=== PATIENT | male | born 1965 | race Caucasian/White ===

== ENCOUNTER 2017-05-02 16:12 | Emergency (ER) | payer BC ==
[~2017-05-02] VITALS: Ht 180.3 cm; Wt 166.8 kg
[~2017-05-02 16:12] MED LIST: LISI-788 PO; NAPR1TAB9 PO; PRED1SUS3 OPL; WELLBUTRIN PO
[2017-05-02 16:15] VITALS: TEMP 36.5; Ht 180.3 cm; Wt 166.8 kg
--- NOTE | 2017-05-02 16:29 | EMERGENCY ROOM VISIT NOTE ---
History First contact with patient: 16:17 Chief Complaint: FLANK PAIN Stated Complaint: LOWER LEFT SIDE PAIN History of Present Illness The patient is a 52 year old male who presents to the Emergency Room with complaints of left sided abdominal pain. Associated with diaphoresis. Initial episode yesterday around midday, lasted for 10 minutes, completely resolved. 14: 30 today had another episode, sudden starts left side and goes around to the front. He has had previous kidney stones and feels they are similar to this but previously the pain was much worse. No Urine Sx. No change BM (last BM earlier in the morning, very loose). No nausea or vomiting. No chest pain or shortness of breath. Review of Systems See HPI for pertinent positives & negatives. A total of 10 systems reviewed and were otherwise negative. Past Medical/Surgical History Medical Problems: (1) Asthma, Unspecified (2) Depress Disorder-Unspec (3) Hypertension Nos (4) Obesity, Nos Social History Problems: (1) Depress Disorder-Unspec Social History Smoking Status: Never Smoker Current/Historical Medications Scheduled Allopurinol (Zyloprim), 300 MG PO DAILY Amlodipine (Norvasc), 5 MG PO DAILY Aspirin (Aspirin Ec), 81 MG PO DAILY Atorvastatin (Lipitor), 10 MG PO DAILY Bupropion (Wellbutrin Sr), 150 MG PO DAILY Lisinopril (Zestril), 40 MG PO DAILY Tamsulosin Hcl (Flomax), 1 CAP PO DAILY Scheduled PRN Furosemide (Lasix), 20 MG PO DAILY PRN for EDEMA Ondansetron Hcl (Zofran), 4 MG PO Q4H PRN for Nausea Oxycodone Ir (Roxicodone Ir), 1-2 TAB PO Q4H PRN for Severe Pain Allergies Coded Allergies: No Known Allergies (Unverified , 06/07/16) Physical Exam Vital Signs Date Time Temp Pulse Resp B/P (MAP) Pulse Ox O2 Delivery O2 Flow Rate FiO2 05/02/17 18:17 73 18 170/94 97 Room Air 05/02/17 16:15 36.5 78 16 219/132 95 Room Air Physical Exam VITAL SIGNS: were reviewed as above GENERAL: mild acute distress from pain SKIN: Warm dry and pink, no rashes HEAD: Normocephalic and atraumatic EYES: extraocular muscles intact, pupils equal and reactive to light OROPHARYNX: non erythematous, clear and moist LUNGS: Regular rate, no accessory muscle use, no respiratory distress, clear to auscultation, no accessory muscle use HEART: Regular rate and rhythm, heart sounds 1+2, no murmurs ABDOMEN: Soft, left lower quadrant tenderness without guarding or rebound tenderness, bowel sounds normal BACK: no CVA tenderness EXTREMITIES: Warm and well perfused, no calf tenderness/swelling, no pedal edema. NEUROLOGICALLY: Awake alert and oriented without gross focal motor or sensory deficit. There is no facial droop. Speech is clear. Vision is grossly normal. Medical Decision & Procedures ER Provider Diagnostic Interpretation: CT SCAN OF THE ABDOMEN AND PELVIS WITHOUT CONTRAST CLINICAL HISTORY: Left flank and left lower quadrant abdominal pain COMPARISON STUDY: No previous studies for comparison. TECHNIQUE: CT scan of the abdomen and pelvis was performed from the lung bases to the proximal femurs. Images are reviewed in the axial, sagittal, and coronal planes. IV contrast was not administered for this examination. CT DOSE: 2410.83 mGy.cm FINDINGS: Lower chest: The heart is mildly enlarged. There are minimal coronary artery calcifications. There is minor basilar atelectasis. There are no pleural effusions. Liver: There is hepatic steatosis. No focal hepatic masses are visualized. Gallbladder: Unremarkable. Spleen: Normal in size and attenuation. Pancreas: Unremarkable. Adrenal glands: Unremarkable. Kidneys: There is a 3 mm mid pole right renal calculus. There is a 3 mm lower pole left renal calculus. There is mild left-sided hydronephrosis. There is mild left-sided hydroureter. There is a 4 mm calculus at the level of the left ureterovesical junction. Bowel: There are no transition zones indicate bowel obstruction. There is colonic diverticulosis. There are no acute peridiverticular inflammatory changes. The appendix appears normal. Peritoneum: There is no intraperitoneal free air or abdominal ascites. Vasculature: The abdominal aorta is normal in course and caliber. Adenopathy: None. Pelvic viscera: The bladder, and pelvic viscera are unremarkable. Skeletal structures: No destructive osseous lesions are seen. IMPRESSION: 1. Bilateral nephrolithiasis 2. 4 mm calculus at the level the left ureterovesical junction with mild secondary obstructive changes 3. No evidence of bowel obstruction. No evidence of free air. Electronically signed by: Maik Chang M.D. 05/02/2017 5:41 PM Dictated Date/Time: 05/02/2017 5:36 PM Laboratory Results 05/02/17 17:05 Red Blood Count 5.21, Mean Corpuscular Volume 91.2, Mean Corpuscular Hemoglobin 31.3, Mean Corpuscular Hemoglobin Concent 34.3, Mean Platelet Volume 11.5, Neutrophils (%) (Auto) 66.1, Lymphocytes (%) (Auto) 20.5, Monocytes (%) (Auto) 7.6, Eosinophils (%) (Auto) 4.8, Basophils (%) (Auto) 0.4, Neutrophils # (Auto) 6.75, Lymphocytes # (Auto) 2.09, Monocytes # (Auto) 0.78, Eosinophils # (Auto) 0.49, Basophils # (Auto) 0.04 05/02/17 17:05 Test 05/02/17 17:05 05/02/17 17:16 05/02/17 17:24 White Blood Count 10.21 K/uL (4.8-10.8) Red Blood Count 5.21 M/uL (4.7-6.1) Hemoglobin 16.3 g/dL (14.0-18.0) Hematocrit 47.5 % (42-52) Mean Corpuscular Volume 91.2 fL (80-100) Mean Corpuscular Hemoglobin 31.3 pg (25-34) Mean Corpuscular Hemoglobin Concent 34.3 g/dl (32-36) Platelet Count 202 K/uL (130-400) Mean Platelet Volume 11.5 fL (7.4-10.4) Neutrophils (%) (Auto) 66.1 % Lymphocytes (%) (Auto) 20.5 % Monocytes (%) (Auto) 7.6 % Eosinophils (%) (Auto) 4.8 % Basophils (%) (Auto) 0.4 % Neutrophils # (Auto) 6.75 K/uL (1.4-6.5) Lymphocytes # (Auto) 2.09 K/uL (1.2-3.4) Monocytes # (Auto) 0.78 K/uL (0.11-0.59) Eosinophils # (Auto) 0.49 K/uL (0-0.5) Basophils # (Auto) 0.04 K/uL (0-0.2) RDW Standard Deviation 46.9 fL (36.4-46.3) RDW Coefficient of Variation 13.9 % (11.5-14.5) Immature Granulocyte % (Auto) 0.6 % Immature Granulocyte # (Auto) 0.06 K/uL (0.00-0.02) Est Creatinine Clear Calc Drug Dose 111.4 ml/min Estimated GFR () 79.0 Estimated GFR (Non- 68.1 BUN/Creatinine Ratio 13.4 (10-20) Calcium Level 9.0 mg/dl (8.5-10.1) Total Bilirubin 0.5 mg/dl (0.2-1) Aspartate Amino Transf (AST/SGOT) 49 U/L (15-37) Alanine Aminotransferase (ALT/SGPT) 71 U/L (12-78) Alkaline Phosphatase 63 U/L (45-117) Total Protein 8.4 gm/dl (6.4-8.2) Albumin 4.1 gm/dl (3.4-5.0) Globulin 4.3 gm/dl (2.5-4.0) Albumin/Globulin Ratio 1.0 (0.9-2) Lipase 136 U/L (73-393) Bedside Hemoglobin 17.0 g/dl (14.0-18.0) Bedside Hematocrit 50 % (42-52) Bedside Sodium 142 mEq/L (135-144) Bedside Potassium 4.0 mEq/L (3.3-5.0) Bedside Chloride 101 mEq/L (101-112) Bedside Total CO2 28 mEq/l (24-31) Anion Gap 18.0 mmol/L (16-25) Bedside Blood Urea Nitrogen 17 mg/dl (7-18) Bedside Creatinine 1.2 mg/dl (0.6-1.3) Bedside Glucose (other) 93 mg/dl (70-99) Bedside Ionized Calcium (Gabi) 1.13 mmol/l (1.12-1.32) Urine Color DK YELLOW Urine Appearance CLEAR (CLEAR) Urine pH 5.5 (4.5-7.5) Urine Specific [place] 1.024 (1.000-1.030) Urine Protein TRACE (NEG) Urine Glucose (UA) NEG (NEG) Urine Ketones TRACE (NEG) Urine Occult Blood 2+ (NEG) Urine Nitrite NEG (NEG) Urine Bilirubin NEG (NEG) Urine Urobilinogen NEG (NEG) Urine Leukocyte Esterase TRACE (NEG) Urine WBC (Auto) 1-5 /hpf (0-5) Urine RBC (Auto) 10-30 /hpf (0-4) Urine Hyaline Casts (Auto) 5-10 /lpf (0-5) Urine Epithelial Cells (Auto) >30 /lpf (0-5) Urine Bacteria (Auto) NEG (NEG) Medications Administered Medications (Trade) Dose Ordered Sig/Christopher Route Start Time Stop Time Status Last Admin Dose Admin Sodium Chloride 1,000 ml @ 999 mls/hr Q1H1M STAT IV 05/02/17 16:32 05/02/17 17:32 DC 05/02/17 17:26 999 MLS/HR Sodium Chloride 1,000 ml @ 999 mls/hr Q1H1M STAT IV 05/02/17 17:56 05/02/17 18:56 DC 05/02/17 18:12 999 MLS/HR Tamsulosin HCl (Flomax Cap) 0.4 mg NOW STAT PO 05/02/17 18:01 05/02/17 18:03 DC 05/02/17 18:13 0.4 MG Oxycodone HCl (Roxicodone Immediate Rel 5MG Home Pack) 1 homepack UD ONCE PO 05/02/17 18:15 05/02/17 18:16 DC 05/02/17 18:24 1 HOMEPACK Ondansetron HCl (ZOFRAN ODT 4MG Home Pack) 1 homepack UD ONCE PO 05/02/17 18:15 05/02/17 18:16 DC 05/02/17 18:24 1 HOMEPACK ECG Indication: abdominal pain Rate (beats per minute): 79 Rhythm: normal sinus Findings: no acute ischemic change Comparison ECG Date: no prior available ED Course 16:30 Complete history and physical performed 16:[address] Campos who separately performed history and physical , recommended switching CT to without contrast as given his BMI 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 Discussed all results with the patient, treatment and management. Discussed reasons for returning to the ER including fevers, chills, vomiting or increased pain. Medical Decision Prior records/ancillary studies reviewed. Triage Nursing notes reviewed. Additional history obtained from the patient The patient's history was concerning for abdominal pain. Differential diagnosis: Etiologies such as appendicitis, diverticulitis, PUD, biliary pathology, UTI, pancreatitis, obstruction, mesenteric ischemia, aortic pathology, infections, inflammatory bowel disease, renal colic, as well as others were entertained. Physical examination findings: As above. LLQ tenderness ER treatment provided: NSS bolus 1L x2 Tamsulosin 0.4mg PO The patient was frequently asked if he would like anything for pain or nausea but he declined throughout his ER visit. Diagnostics interpreted by me: ECG: NSR no ischemic changes The labs were relatively unremarkable Imaging studies: CT A/P without contrast as above showed a distal left ureter 4mm kidney stone He was diagnosed with renal colic. By the evaluation outlined above emergent etiologies such as appendicitis, diverticulitis, PUD, biliary pathology, UTI, pancreatitis, obstruction, mesenteric ischemia, aortic pathology, infections, inflammatory bowel disease, as well as others were deemed relatively unlikely. The patient informed about the findings as listed above including the additional stone in each of his kidney's remaining. All questions were answered and he pleased with the treatment. Return instructions were outlined and the patient was discharged in stable condition. Blood pressure screening. His blood pressure decreased during his ER visit and was most likely acute situation probably on background of hypertension. He was recommended to follow up with his primary care physician regarding this. Outpatient prescription management: Oxycodone 5mg homepak and 12 tabs (1-2 tabs, Q4H PRN for severe pain) Ondansetron 4mg homepak and 10 tabs (1 tab, Q4H PRN for nausea) Tamsulosin 0.4mg PO daily #7 Referral: The patient was referred back to their primary care physician for follow-up in 2 to 3 days for a recheck of the current condition. [place] Drug Monitoring Program Search Results: patient reviewed within database, no issues identified Impression Primary Impression: Left nephrolithiasis Departure Information Dispostion Home / Self-Care Condition GOOD Prescriptions Tamsulosin Hcl (FLOMAX) 0.4 Mg Cap 1 CAP PO DAILY for 7 Days, #7 CAP 5 Refills Prov: Jose Malone MD 05/02/17 Ondansetron Hcl (ZOFRAN) 4 Mg Tab 4 MG PO Q4H Y for Nausea for 7 Days, #10 TAB Prov: Jose Malone MD 05/02/17 Oxycodone Ir (Roxicodone Ir) 5 Mg Tab 1-2 TAB PO Q4H Y for Severe Pain, #12 TAB Prov: Jose Malone MD 05/02/17 Referrals Griselda Good M.D. (MEDICAL) (PCP) Patient Instructions [facility] Additional Instructions KIDNEY STONE INSTRUCTIONS: DO NOT drive, drink alcohol, operate machinery, or perform dangerous activities today. You were given medications in the ER that can affect your ability to safely function or operate a vehicle. Oxycodone (OxyIR) 5mg: Take 1-2 pills every four hours as needed for breakthrough pain. Avoid alcohol, operating machinery or dangerous equipment, working on ladders or roofs, DRIVING, making important decisions, or situations where being under the influence may be dangerous. It is recommended to use an [id number] stool softener such as Colace, 100mg twice daily while taking this medication to avoid constipation. Zofran(odansetron) tablets 4mg: Take one and allow it to dissolve in your mouth every four hours as needed for nausea or vomiting. Ibuprofen(Motrin, Advil) may be used for fever or pain. Use 600mg every six hours as needed. Take with food. Avoid using more than 2400mg in a 24 hour period. Do not use 2400mg per day for more than three consecutive days without physician direction. Prolonged inappropriate use can lead to stomach upset or ulcers. This is available over the counter and typically comes in 200mg tablets. (AND/OR) Acetaminophen(Tylenol) may be used for fever or pain. Use 1000mg every eight hours as needed. Avoid using more than 3000mg in a 24 hour period. This is available over the counter. Read all the package inserts or medication information paperwork provided. If you have any questions or concerns call your primary provider, pharmacist or the ER for assistance. Strain your urine and collect all the stones or debris for the follow up appointment. Rest and avoid strenuous activity until your stone passes and symptoms resolve.Drink plenty of fluids. Continue current medications. Return to the ER for worsening abdominal or back pain, vomiting, fevers, passing out, or as needed. Follow up with your primary care physician within the next 2-3 days for a recheck of your condition. Resident Tracking Resident Involvement: Resident Care Provided Care Provided: Adult ED
[2017-05-02] MEDS ORDERED: SODIUM CHLORIDE 0.9% 1000ML 1,000 ML IV STA ×2 (16:32→17:56)
[2017-05-02] MEDS ORDERED: OPTIRAY 320 IV PRN (17:00)
[2017-05-02] MEDS ORDERED: ATOR10TA82 PO (17:31)
[2017-05-02] MEDS ORDERED: ASPI81TA28 PO (17:31)
[2017-05-02] MEDS ORDERED: LISI40TA PO (17:31)
[2017-05-02] MEDS ORDERED: BUPR-79 PO (17:31)
[2017-05-02] MEDS ORDERED: AMLO-110 PO (17:31)
[2017-05-02] MEDS ORDERED: ALLO300T2 PO (17:31)
[2017-05-02] MEDS ORDERED: FURO-85 PO (17:31)
[2017-05-02 17:33] LABS: URINE APPEARANCE CLEAR (CLEAR); URINE BILIRUBIN NEG (NEG); URINE COLOR DK YELLOW; URINE EPITHELIAL CELL AUTO >30 /lpf (0-5); URINE NITRITE NEG (NEG); URINE PH 5.5 (4.5-7.5); URINE SPECIFIC GRAVITY 1.024 (1.000-1.030); UROBILINOGEN NEG (NEG); ZZUR CULT IF INDIC CLEAN CATCH NO
[2017-05-02 17:41] LABS: MANUAL MICROSCOPIC REQUIRED? NO; REVIEW REQ? NO
--- NOTE | 2017-05-02 17:42 | DIAGNOSTIC IMAGING REPORT ---
CT SCAN OF THE ABDOMEN AND PELVIS WITHOUT CONTRAST CLINICAL HISTORY: Left flank and left lower quadrant abdominal pain COMPARISON STUDY: No previous studies for comparison. TECHNIQUE: CT scan of the abdomen and pelvis was performed from the lung bases to the proximal femurs. Images are reviewed in the axial, sagittal, and coronal planes. IV contrast was not administered for this examination. CT DOSE: 2410.83 mGy.cm FINDINGS: Lower chest: The heart is mildly enlarged. There are minimal coronary artery calcifications. There is minor basilar atelectasis. There are no pleural effusions. Liver: There is hepatic steatosis. No focal hepatic masses are visualized. Gallbladder: Unremarkable. Spleen: Normal in size and attenuation. Pancreas: Unremarkable. Adrenal glands: Unremarkable. Kidneys: There is a 3 mm mid pole right renal calculus. There is a 3 mm lower pole left renal calculus. There is mild left-sided hydronephrosis. There is mild left-sided hydroureter. There is a 4 mm calculus at the level of the left ureterovesical junction. Bowel: There are no transition zones indicate bowel obstruction. There is colonic diverticulosis. There are no acute peridiverticular inflammatory changes. The appendix appears normal. Peritoneum: There is no intraperitoneal free air or abdominal ascites. Vasculature: The abdominal aorta is normal in course and caliber. Adenopathy: None. Pelvic viscera: The bladder, and pelvic viscera are unremarkable. Skeletal structures: No destructive osseous lesions are seen. IMPRESSION: 1. Bilateral nephrolithiasis 2. 4 mm calculus at the level the left ureterovesical junction with mild secondary obstructive changes 3. No evidence of bowel obstruction. No evidence of free air. Electronically signed by: Maik Chang M.D. 05/02/2017 5:41 PM Dictated Date/Time: 05/02/2017 5:36 PM
--- NOTE | 2017-05-02 17:44 | EMERGENCY ROOM VISIT NOTE ---
ED Visit Note First contact with patient: 16:17 Resident Physician Supervision Note: I was present with Dr. Malone during the history and exam. I discussed the case with the resident and agree with the findings and plan as documented in the note. Documented By: Riccardo Campos
[2017-05-02 17:45] LABS: BUN/CREATININE RATIO 13.4 (10-20); CREATININE 1.2 mg/dl (0.60-1.40)
[2017-05-02 17:48] LABS: BASO % 0.4 %; BASO ABS # 0.04 K/uL (0-0.2); COMPLETE YES; EOS % 4.8 %; HEMATOCRIT 47.5 % (42-52); IG% 0.6 %; LYMPH % 20.5 %; LYMPH ABS # 2.09 K/uL (1.2-3.4); MEAN CELL VOLUME 91.2 fL (80-100); MEAN CORPUSCULAR HEMOGLOBIN 31.3 pg (25-34); MEAN CORPUSCULAR HGB CONC 34.3 g/dl (32-36); MEAN PLATELET VOLUME 11.5 fL (7.4-10.4); MONO % 7.6 %; NEUT % 66.1 %; PLATELET COUNT 202 K/uL (130-400); RED BLOOD COUNT 5.21 M/uL (4.7-6.1); WHITE BLOOD COUNT 10.21 K/uL (4.8-10.8)
[2017-05-02] MEDS ORDERED: TAMSULOSIN HCL 0.4 MG CAP PO STA (18:01)
[2017-05-02] MEDS ORDERED: TAMS0.4C38 PO (18:06)
[2017-05-02] MEDS ORDERED: ONDA4TAB46 PO (18:06)
[2017-05-02] MEDS ORDERED: OXYC1TAB3 PO (18:06)
[2017-05-02] MEDS ORDERED: ONDANSETRON HOME PACK 4MG OD TAB PO ONE (18:15)
[2017-05-02] MEDS ORDERED: OXYCODONE IR HOME PACK PO ONE (18:15)
[2017-05-02 18:17] VITALS: BP 170/94; PULSE 73; O2SAT 97
[2017-05-02 19:35] LABS: ISTAT CREATININE 1.2 mg/dl (0.6-1.3); ISTAT IONIZED CALCIUM 1.13 mmol/l (1.12-1.32)
[2017-05-10] MEDS ORDERED: EPP3/2 IM (13:05)
[2017-05-10] MEDS ORDERED: LOSA50TA36 PO (13:05)
[2017-05-10] MEDS ORDERED: PRD10 PO (13:05)
== END 2017-05-02 18:39 | disposition home or self-care (01) ==
LOC: C.EDB 16:14
DX: N20.0 Calculus of kidney (principal); J45.909 Unspecified asthma, uncomplicated; F32.9 Major depressive disorder, single episode, unspecified; I10 Essential (primary) hypertension; E66.9 Obesity, unspecified; Z68.43 Body mass index [BMI] 50.0-59.9, adult; Z79.82 Long term (current) use of aspirin; Z79.899 Other long term (current) drug therapy

== ENCOUNTER 2017-05-07 20:27 | Inpatient (IN) | payer BC ==
[~2017-05-07] VITALS: Ht 180.3 cm; Wt 167.2 kg
[~2017-05-07 20:27] MED LIST changes: +ALLO300T2 PO; +AMLO-110 PO; +ASPI81TA28 PO; +ATOR10TA88 PO; +BUPR-79 PO; +FURO-85 PO; -LISI-788 PO; +LISI40TA PO; -NAPR1TAB9 PO; +ONDA4TAB46 PO; +OXYC1TAB3 PO; -PRED1SUS3 OPL; +TAMS0.4C38 PO; -WELLBUTRIN PO
[2017-05-07] MEDS ORDERED: SODIUM CHLORIDE 0.9% 1000ML 1,000 ML IV STA (20:32)
[2017-05-07] MEDS ORDERED: EPINEPHRINE ADULT AUTO-INJECT 0.3 MG SYR ONE (20:32)
[2017-05-07] MEDS ORDERED: EpINEphrine INJ 1MG/ML AMP 1 MG/ML AMP SQ STA (20:32)
[2017-05-07] MEDS ORDERED: RANITIDINE HCL 50 MG/100 ML D5W IV STA (20:32)
[2017-05-07] MEDS ORDERED: DiphenhydrAMINE HCL 50 MG/ML VIAL IV STA (20:32)
[2017-05-07] MEDS ORDERED: RACEPINEPHRINE 2.25% NEBU SOLN 0.5 ML VIAL INH STA (20:36)
[2017-05-07] MEDS ORDERED: DEXAMETHASONE SOD INJ 10 MG/ML VIAL IV ONE (20:45)
[2017-05-07] MEDS ORDERED: EpINEphrine HCL INJ 4 MG in DEXTROSE 5% 250ML 250 ML IV STA (20:47)
[2017-05-07 20:53] LABS: BASO % 0.2 %; BASO ABS # 0.02 K/uL (0-0.2); COMPLETE YES; EOS % 5.2 %; HEMATOCRIT 52.3 % (42-52); IG% 0.5 %; LYMPH % 27.3 %; LYMPH ABS # 3.02 K/uL (1.2-3.4); MEAN CELL VOLUME 90.5 fL (80-100); MEAN CORPUSCULAR HEMOGLOBIN 30.6 pg (25-34); MEAN CORPUSCULAR HGB CONC 33.8 g/dl (32-36); MEAN PLATELET VOLUME 11.6 fL (7.4-10.4); MONO % 7.5 %; NEUT % 59.3 %; PLATELET COUNT 213 K/uL (130-400); RED BLOOD COUNT 5.78 M/uL (4.7-6.1); WHITE BLOOD COUNT 11.06 K/uL (4.8-10.8)
[2017-05-07] MEDS ORDERED: EPINEPHRINE HCL 4 MG in DEXTROSE 5% 250ML IV PRN (21:00)
--- NOTE | 2017-05-07 21:02 | EMERGENCY ROOM VISIT NOTE ---
History Report prepared by Letyibadriane: Db Burnette Under the Supervision of: Dr. Clayton Clinton M.D. First contact with patient: 20:32 Chief Complaint: ALLERGIC REACTION Stated Complaint: ALLERGIC REACTION History of Present Illness The patient is a 52 year old male who presents to the Emergency Room with an acute allergic reaction that started just prior to arrival. The patient came to the ED with significant lip and tongue swelling and was unable to talk. He notes some difficult breathing through his nose. The patient also broke out in hives. Per , the patient had 50 mg of Benadryl about 15-20 minutes prior to arrival. The patient has never had an allergic reaction like this before and he is not sure what he is allergic to. The patient does not take FEDERICO inhibitors. 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 He was outside working with treated lumbar just prior to the reaction. The patient was in the ED one week ago with kidney stones. Source of History: patient, spouse/significant other Onset: just prior to arrival Position: other (global) Quality: other (allergic reaction) Timing: other (acute) Associated Symptoms: + rash Note: + facial swelling. some trouble breathing. Review of Systems See HPI for pertinent positives & negatives. A total of 10 systems reviewed and were otherwise negative. Past Medical & Surgical Medical Problems: (1) Angioedema of lips (2) Asthma, Unspecified (3) Depress Disorder-Unspec (4) Hypertension Nos (5) Lip swelling (6) Obesity, Nos (7) Tongue swelling Social History Problems: (1) Depress Disorder-Unspec Family History No pertinent family history Social History Smoking Status: Never Smoker Current/Historical Medications Scheduled Allopurinol (Zyloprim), 300 MG PO DAILY Amlodipine (Norvasc), 5 MG PO DAILY Aspirin (Aspirin Ec), 81 MG PO DAILY Atorvastatin (Lipitor), 10 MG PO DAILY Bupropion (Wellbutrin Sr), 150 MG PO BID Lisinopril (Zestril), 40 MG PO DAILY Scheduled PRN Furosemide (Lasix), 20 MG PO DAILY PRN for EDEMA Allergies Coded Allergies: No Known Allergies (Unverified , 06/07/16) Physical Exam Vital Signs Date Time Temp Pulse Resp B/P (MAP) Pulse Ox O2 Delivery O2 Flow Rate FiO2 05/07/17 22:00 60 05/07/17 22:00 36.3 74 14 113/85 99 Mechanical Ventilator 60 05/07/17 21:06 99 20 98 Non-Rebreather 15.0 05/07/17 20:55 100 18 170/110 98 Mask 12.0 05/07/17 20:37 37.3 110 22 208/110 91 Room Air 05/07/17 20:37 91 Room Air 05/07/17 20:37 109 05/07/17 20:34 91 Room Air Physical Exam GENERAL: Patient is a healthy-appearing well-nourished male. HEAD: Normocephalic atraumatic EYES: Ocular movements intact pupils equal and react to light OROPHARYNX Tongue and lips are grossly swollen. Tongue is roughly the size of the oropharynx. NECK: Positive stridor. CHEST: Good equal expansion LUNGS: Clear and equal to auscultation CARDIAC: Normal S1 and S2 ABDOMEN: Soft nontender no guarding BACK: No CVA tenderness EXTREMITIES: No pain upon palpation normal muscle strength in all groups no clubbing cyanosis or edema. Hive-like rash present on the right forearm. NEURO: Patient is following commands and answering questions appropriately. Alert and oriented x3 Cranial Nerves 2-12 grossly intact Medical Decision & Procedures Laboratory Results Test 05/07/17 20:43 05/07/17 20:53 Immature Granulocyte % (Auto) 0.5 % White Blood Count 11.06 K/uL (4.8-10.8) Red Blood Count 5.78 M/uL (4.7-6.1) Hemoglobin 17.7 g/dL (14.0-18.0) Hematocrit 52.3 % (42-52) Mean Corpuscular Volume 90.5 fL (80-100) Mean Corpuscular Hemoglobin 30.6 pg (25-34) Mean Corpuscular Hemoglobin Concent 33.8 g/dl (32-36) Platelet Count 213 K/uL (130-400) Mean Platelet Volume 11.6 fL (7.4-10.4) Neutrophils (%) (Auto) 59.3 % Lymphocytes (%) (Auto) 27.3 % Monocytes (%) (Auto) 7.5 % Eosinophils (%) (Auto) 5.2 % Basophils (%) (Auto) 0.2 % Neutrophils # (Auto) 6.57 K/uL (1.4-6.5) Lymphocytes # (Auto) 3.02 K/uL (1.2-3.4) Monocytes # (Auto) 0.83 K/uL (0.11-0.59) Eosinophils # (Auto) 0.57 K/uL (0-0.5) Basophils # (Auto) 0.02 K/uL (0-0.2) Immature Granulocyte # (Auto) 0.05 K/uL (0.00-0.02) Prothrombin Time 10.3 SECONDS (9.0-12.0) Prothromb Time International Ratio 1.0 (0.9-1.1) Total Bilirubin 0.3 mg/dl (0.2-1) Direct Bilirubin 0.1 mg/dl (0-0.2) Aspartate Amino Transf (AST/SGOT) 47 U/L (15-37) Alanine Aminotransferase (ALT/SGPT) 66 U/L (12-78) Alkaline Phosphatase 63 U/L (45-117) Total Protein 8.0 gm/dl (6.4-8.2) Albumin 4.0 gm/dl (3.4-5.0) Lipase 161 U/L (73-393) Date/Time Source Procedure Growth Status 05/07/17 00:00 Nasal MRSA DNA Surveillance Screen - Final Specimen Positive for MRSA by DNA Probe Complete Labs reviewed by ED physician. Medications Administered Medications (Trade) Dose Ordered Sig/Christopher Route Start Time Stop Time Status Last Admin Dose Admin Epinephrine (Epipen) 0.3 mg STK-MED ONCE .ROUTE 05/07/17 20:32 05/07/17 20:33 DC 05/07/17 20:32 0.3 MG Diphenhydramine HCl (Benadryl Inj) 25 mg NOW STAT IV 05/07/17 20:32 05/07/17 20:37 DC 05/07/17 20:44 25 MG Sodium Chloride 1,000 ml @ 999 mls/hr Q1H1M STAT IV 05/07/17 20:32 05/07/17 21:32 DC 05/07/17 20:32 999 MLS/HR Dexamethasone Sodium Phosphate (Decadron Inj) 10 mg NOW ONCE IV 05/07/17 20:45 05/07/17 20:46 DC 05/07/17 20:44 10 MG Ranitidine HCl (zANTac IV) 50 mg NOW STAT IV 05/07/17 20:32 05/07/17 20:37 DC 05/07/17 20:44 50 MG Racepinephrine (Raccemic Epinephrine 2.25% 0.5ML Neb) 0.5 ml NOW STAT INH 05/07/17 20:36 05/07/17 20:37 DC 05/07/17 21:06 0.5 ML Hydromorphone HCl (Dilaudid Inj) 2 mg STK-MED ONCE .ROUTE 05/07/17 22:02 05/07/17 22:03 DC 05/07/17 22:02 2 MG ED Course 2030: The patient was moved from room C2b to room A1. 2031: Past medical records reviewed. The patient was evaluated in room A1. A complete history and physical examination was performed. 2031: Zantac 50 mg IV, NSS 1000 ml @ 999 mls/hr, Benadryl 25 mg IV, Epinephrine 0.3 mg SQ. 2035: Racepinephrine 0.5 ml INH. 2044: Decadron 10 mg IV. 2044: The patient signed a blood consent form. Explained the purpose of FFP. The patient is starting to feel somewhat better. 2047: Dr. Pa, Anesthesiologist, at bedside. The OR team will be prepared. 2049: Explained the need to be taken to the OR to the patient and his . They verbalized understanding. 2053: Dr. Guillen, ENT, at bedside. The patient will be taken to the OR. 2099: Epinephrine HCl 4 mg / dextrose 254 ml @ 0 mls/hr IV protocol. 2119: Discussed the case with Dr. Sexton, Time Study Engineer and Dr. Foreman, Hospitalist. They are aware of the case. Medical Decision Differential diagnosis: Etiologies such as allergic reaction, anaphylaxis, urticaria, Matos-Semaj syndrome, toxic epidermal necrolysis, erythema multiforme, cellulitis, as well as others were entertained. Blood Pressure Screening: Patient was found to have an elevated blood pressure and was referred to their primary care doctor for recheck and further treatment Medication Reconciliation: I attest that I have personally reviewed the patient' s current medication list This is a 52-year-old male who presents emergency department complaining of diffuse edema to his lips and tongue. Upon arrival to the emergency department the patient is unable to speak. Due to the patient's presentation he was immediately moved into a trauma bay and immediately given an EpiPen. An IV was established, the patient was then given 10 mg of Decadron, Zantac, 50 mg of Benadryl, normal saline bolus. The patient slowly began to improve because of his entire situation I immediately called anesthesia as well as ear nose and throat. A criteria was placed at the bedside. The patient was then given epi breathing treatments and an epi-drip was ordered. The patient signed a blood consent as I am unsure if this is angioedema or allergic reaction. I typed and crossed him for 2 units of fresh frozen plasma. The patient was taken to the OR before receiving any blood products. Consults Time Called: 2031 Consulting Physician: Dr. Pa, Anesthesiologist Returned Call: 2047 The OR team will be prepared. Additional Consults: Time Called: 2031 Consulted Physician: Dr. Guillen, ENT Returned Call: 2053 Additional Comments: The patient is being taken to the OR. Time Called: 2109 Consulted Physician: Dr. Sexton, Time Study Engineer and Dr. Foreman, Hospitalist. Returned Call: 2119 Additional Comments: They are aware of the case. Impression Primary Impression: Allergic reaction Critical Care I have personally spent greater than 30 minutes of critical care time in the direct management of this patient. This includes bedside care, interpretation of diagnostic studies, and testing, discussion with consultants, patient, and family members, and other required patient management activities. This 30 minutes is in excess of all separately billable procedures. Scribe Attestation The scribe's documentation has been prepared under my direction and personally reviewed by me in its entirety. I confirm that the note above accurately reflects all work, treatment, procedures, and medical decision making performed by me. Departure Information Dispostion Other (Operating Room) Referrals Griselda Good M.D. (MEDICAL) (PCP) Patient Instructions [facility] Problem Qualifiers Primary Impression: Allergic reaction Encounter type: initial encounter Qualified Codes: T78.40XA - Allergy, unspecified, initial encounter
[2017-05-07] MEDS ORDERED: MIDAZOLAM HCL 1 MG/ML 2ML VIAL ONE ×2 (21:04)
[2017-05-07 21:06] VITALS: PULSE 99; O2SAT 98
[2017-05-07] MEDS ORDERED: LIDOCAINE/EPINEPHRINE 1% 20 ML VIAL ONE (21:21)
[2017-05-07 21:22] LABS: BUN/CREATININE RATIO 10.9 (10-20); CREATININE 1.5 mg/dl (0.60-1.40); POTASSIUM 3.6 mmol/L (3.5-5.1)
[2017-05-07] MEDS ORDERED: FENTANYL CITRATE INJ 50 MCG/1 ML 2 ML VIAL ONE (21:31)
--- NOTE | 2017-05-07 21:58 | Medical Consult ---
Consultation Date of Consultation: May 07, 2017. Attending Physician: History of Present Illness 52 yo male presented to ED emergently today around 830 for swelling of the lips and tongue. Started around 6 pm after eating Danish food. He was given epi pen, and steroids in the ED. ENT called to evaluate airway. Anesthesia service also called for evaluation. He was taken emergently to the OR for intubation. Past Medical/Surgical History Medical Problems: (1) Asthma, Unspecified Status: Chronic (2) Depress Disorder-Unspec Status: Chronic (3) Hypertension Nos Status: Chronic (4) Left nephrolithiasis Status: Acute (5) Obesity, Nos Status: Chronic Family History No pertinent family history Social History Smoking Status: Never Smoker Allergies Coded Allergies: No Known Allergies (Unverified , 06/07/16) Current Inpatient Medications Current Inpatient Medications Medications (Trade) Dose Ordered Sig/Christopher Route Start Time Stop Time Status Last Admin Dose Admin Epinephrine HCl 4 mg/Dextrose 254 ml @ 0 mls/hr Q0M PRN IV 05/07/17 21:00 06/06/17 20:59 Review of Systems Constitutional: No fever, No chills, No sweats, No weight loss, No weakness, No fatigue, No problem reported Eyes: No worsening of vision, No eye pain, No redness, No discharge, No diplopia, No problem reported ENT: + problem reported (swelling of lips and tongue) Respiratory: No cough, No sputum, No wheezing, No shortness of breath, No dyspnea on exertion, No dyspnea at rest, No hemoptysis, No problem reported Cardiovascular: No chest pain, No orthopnea, No PND, No edema, No claudication , No palpitations, No problem reported Abdomen: No pain, No nausea, No vomiting, No diarrhea, No constipation, No GI bleeding, No problem reported Physical Exam Date Time Temp Pulse Resp B/P (MAP) Pulse Ox O2 Delivery O2 Flow Rate FiO2 05/07/17 21:06 99 20 98 Non-Rebreather 15.0 05/07/17 20:55 100 18 170/110 98 Mask 12.0 05/07/17 20:37 37.3 110 22 208/110 91 Room Air 05/07/17 20:37 91 Room Air 05/07/17 20:37 109 05/07/17 20:34 91 Room Air General Appearance: WD/WN, + mild distress Head: normocephalic, atraumatic Eyes: PERRL, EOMI ENT: + pertinent finding (Edematous lips and tongue.) Neck: supple, no adenopathy Respiratory/Chest: no respiratory distress, no accessory muscle use Laboratory Results Last 24 Hours Test 05/07/17 20:43 05/07/17 20:53 White Blood Count 11.06 K/uL Red Blood Count 5.78 M/uL Hemoglobin 17.7 g/dL Hematocrit 52.3 % Mean Corpuscular Volume 90.5 fL Mean Corpuscular Hemoglobin 30.6 pg Mean Corpuscular Hemoglobin Concent 33.8 g/dl Platelet Count 213 K/uL Mean Platelet Volume 11.6 fL Neutrophils (%) (Auto) 59.3 % Lymphocytes (%) (Auto) 27.3 % Monocytes (%) (Auto) 7.5 % Eosinophils (%) (Auto) 5.2 % Basophils (%) (Auto) 0.2 % Neutrophils # (Auto) 6.57 K/uL Lymphocytes # (Auto) 3.02 K/uL Monocytes # (Auto) 0.83 K/uL Eosinophils # (Auto) 0.57 K/uL Basophils # (Auto) 0.02 K/uL RDW Standard Deviation 45.9 fL RDW Coefficient of Variation 13.9 % Immature Granulocyte % (Auto) 0.5 % Immature Granulocyte # (Auto) 0.05 K/uL Sodium Level 140 mmol/L Potassium Level 3.6 mmol/L Chloride Level 104 mmol/L Carbon Dioxide Level 28 mmol/L Anion Gap 8.0 mmol/L Blood Urea Nitrogen 16 mg/dl Creatinine 1.50 mg/dl Est Creatinine Clear Calc Drug Dose 88.5 ml/min Estimated GFR () 60.3 Estimated GFR (Non- 52.0 BUN/Creatinine Ratio 10.9 Random Glucose 144 mg/dl Calcium Level 9.0 mg/dl Total Bilirubin 0.3 mg/dl Direct Bilirubin 0.1 mg/dl Aspartate Amino Transf (AST/SGOT) 47 U/L Alanine Aminotransferase (ALT/SGPT) 66 U/L Alkaline Phosphatase 63 U/L Total Protein 8.0 gm/dl Albumin 4.0 gm/dl Lipase 161 U/L Assessment & Plan 52 yo male with severe allergic reaction/angioedema of the lips and tongue. - taken to the OR emergently for intubation - this was done fiberoptically by anesthesia service - he will be admitted to medicine service/ICU for management - plan for extubation after edema of the tongue and lips resolves.
[2017-05-07] MEDS ORDERED: MoRPHine SULFATE 2 MG/ML CARP IV PRN (22:00)
[2017-05-07] MEDS ORDERED: NURSING VERBAL MED ORDER ONE ×2 (22:00→22:45)
[2017-05-07] MEDS ORDERED: HYDROmorphone INJ 2 MG/ML SYR/VIAL ONE (22:02)
[2017-05-07] MEDS ORDERED: PROPOFOL IV EMULSION 10 MG/ML 20 ML VIAL IV ONE (22:15)
[2017-05-07] MEDS ORDERED: LIDOCAINE HCL 2% 2 ML VIAL (20MG/ML) ONE (22:15)
[2017-05-07] MEDS ORDERED: LABETALOL HCL IV 5 MG/ML 20ML IV ONE (22:16)
[2017-05-07] MEDS ORDERED: LARYING-O-JET KIT (LTA) ONE ×2 (22:17)
--- NOTE | 2017-05-07 22:22 | DIAGNOSTIC IMAGING REPORT ---
CHEST ONE VIEW PORTABLE HISTORY: Endotracheal tube placement. COMPARISON: None. FINDINGS: The endotracheal tube terminates approximately 2.7 cm from the elida. There are low lung volumes. The heart is enlarged. There is mild central pulmonary vascular congestion without overt edema. No pneumothorax. No pleural effusions. IMPRESSION: 1. The endotracheal tube terminates 2.7 cm and the elida. 2. Cardiomegaly with mild central pulmonary vascular congestion. Electronically signed by: Yoav Valenzuela M.D. 05/07/2017 10:21 PM Dictated Date/Time: 05/07/2017 10:19 PM
[2017-05-07] MEDS ORDERED: PROPOFOL IV EMULSION 10 MG/ML 100 ML VIAL IV ONE (22:23)
[2017-05-07 22:33] VITALS: BP 114/56; PULSE 64; TEMP 37.2; O2SAT 97; Ht 180.3 cm; Wt 167.2 kg
--- NOTE | 2017-05-07 22:37 | History and Physical ---
History & Physical Date & Time of Service: May 07, 2017 at 22:37 Chief Complaint: Lip Swelling, Tongue Swelling Primary Care Physician: Griselda Good M.D. (MEDICAL) History of Present Illness Source: spouse, clinic records, hospital records 52 year old male with PMH of HTN, Morbid Obesity, HTN, Gout, Dyslipidemia presents to the Emergency Room with c/o of swelling of the lips and tongue. History obtained from his . As per , Pt ate seafood at a [employer] restaurant around 5:30 to 6 pm today. Then later after an hour or two, he developed swelling of the lips and tongue. said that pt was starting to have difficulty to talk and breath. gave him 50 mg of Benadryl to take. Before the allergic reaction, said that pt was outside working. as pt , denies any insect bites and pt never had any allergic reactions in the past with food or medications. Pt was in the ER 1 week ago for kidney stone. He was discharge with a script for oxycodone, zofran and Flomax. Pt is on Lisinopril for his HTN and was not sure if he took it. Per , Pt did not complaint of any chest pain, palpitation, dizziness, fever, chills and urinary symptoms. In the ER he was given epi pen, steroid, Benadryl. He was taken to the OR for emergent intubation performed by ENT and Anesthesiologist. Past Medical/Surgical History Medical Problems: (1) Asthma, Unspecified Status: Chronic (2) Depress Disorder-Unspec Status: Chronic (3) Hypertension Nos Status: Chronic (4) Obesity, Nos Status: Chronic Family History No pertinent family history Social History Smoking Status: Never Smoker Drug Use: none Multi-Drug Resistant Organisms History of MDRO: No Allergies Coded Allergies: No Known Allergies (Unverified , 06/07/16) Home Medications Scheduled Allopurinol (Zyloprim), 300 MG PO DAILY Amlodipine (Norvasc), 5 MG PO DAILY Aspirin (Aspirin Ec), 81 MG PO DAILY Atorvastatin (Lipitor), 10 MG PO DAILY Bupropion (Wellbutrin Sr), 150 MG PO BID Lisinopril (Zestril), 40 MG PO DAILY Scheduled PRN Furosemide (Lasix), 20 MG PO DAILY PRN for EDEMA Review of Systems Limited reviewed system since pt is intubated on Vent. ( obtained from the ) Constitutional: No fever ENT: + problem reported (swelling on the lips an tongue) Respiratory: + shortness of breath Cardiovascular: No chest pain Genitourinary - Male: No hematuria Psychiatric: No substance abuse Integumentary: + problem reported (hives) Physical Exam Vital Signs Date Time Temp Pulse Resp B/P (MAP) Pulse Ox O2 Delivery O2 Flow Rate FiO2 05/07/17 22:20 36.3 68 14 118/58 99 Mechanical Ventilator 50 05/07/17 22:15 50 05/07/17 22:10 36.3 69 14 96/48 99 Mechanical Ventilator 50 05/07/17 22:00 60 05/07/17 22:00 36.3 74 14 113/85 99 Mechanical Ventilator 60 05/07/17 21:06 99 20 98 Non-Rebreather 15.0 05/07/17 20:55 100 18 170/110 98 Mask 12.0 05/07/17 20:37 37.3 110 22 208/110 91 Room Air 05/07/17 20:37 91 Room Air 05/07/17 20:37 109 05/07/17 20:34 91 Room Air General Appearance: + obese, + pertinent finding (Respiratory distress, Intubate on vent support) Head: normocephalic, atraumatic Eyes: PERRL, sclerae normal ENT: + pertinent finding (Lips swelling, ET tube in good position) Neck: no JVD Respiratory/Chest: + pertinent finding (Vent support, No crackle or wheezing) Cardiovascular: regular rate, rhythm, no JVD, no murmur Abdomen/GI: normal bowel sounds Extremities/Musculoskelatal: + swelling Neurologic/Psych: + pertinent finding (sedated on propofol) Skin: warm/dry Diagnostics Laboratory Results Results Past 24 Hours Test 05/07/17 20:43 05/07/17 20:53 05/07/17 22:31 Range/Units White Blood Count 11.06 4.8-10.8 K/uL Red Blood Count 5.78 4.7-6.1 M/uL Hemoglobin 17.7 14.0-18.0 g/dL Hematocrit 52.3 42-52 % Mean Corpuscular Volume 90.5 80-100 fL Mean Corpuscular Hemoglobin 30.6 25-34 pg Mean Corpuscular Hemoglobin Concent 33.8 32-36 g/dl Platelet Count 213 130-400 K/uL Mean Platelet Volume 11.6 7.4-10.4 fL Neutrophils (%) (Auto) 59.3 % Lymphocytes (%) (Auto) 27.3 % Monocytes (%) (Auto) 7.5 % Eosinophils (%) (Auto) 5.2 % Basophils (%) (Auto) 0.2 % Neutrophils # (Auto) 6.57 1.4-6.5 K/uL Lymphocytes # (Auto) 3.02 1.2-3.4 K/uL Monocytes # (Auto) 0.83 0.11-0.59 K/uL Eosinophils # (Auto) 0.57 0-0.5 K/uL Basophils # (Auto) 0.02 0-0.2 K/uL RDW Standard Deviation 45.9 36.4-46.3 fL RDW Coefficient of Variation 13.9 11.5-14.5 % Immature Granulocyte % (Auto) 0.5 % Immature Granulocyte # (Auto) 0.05 0.00-0.02 K/uL Sodium Level 140 136-145 mmol/L Potassium Level 3.6 3.5-5.1 mmol/L Chloride Level 104 98-107 mmol/L Carbon Dioxide Level 28 21-32 mmol/L Anion Gap 8.0 3-11 mmol/L Blood Urea Nitrogen 16 7-18 mg/dl Creatinine 1.50 0.60-1.40 mg/dl Est Creatinine Clear Calc Drug Dose 88.5 ml/min Estimated GFR () 60.3 Estimated GFR (Non- 52.0 BUN/Creatinine Ratio 10.9 10-20 Random Glucose 144 70-99 mg/dl Calcium Level 9.0 8.5-10.1 mg/dl Total Bilirubin 0.3 0.2-1 mg/dl Direct Bilirubin 0.1 0-0.2 mg/dl Aspartate Amino Transf (AST/SGOT) 47 15-37 U/L Alanine Aminotransferase (ALT/SGPT) 66 12-78 U/L Alkaline Phosphatase 63 45-117 U/L Total Protein 8.0 6.4-8.2 gm/dl Albumin 4.0 3.4-5.0 gm/dl Lipase 161 73-393 U/L Diagnostic Radiology CHEST ONE VIEW PORTABLE HISTORY: Endotracheal tube placement. COMPARISON: None. FINDINGS: The endotracheal tube terminates approximately 2.7 cm from the elida. There are low lung volumes. The heart is enlarged. There is mild central pulmonary vascular congestion without overt edema. No pneumothorax. No pleural effusions. IMPRESSION: 1. The endotracheal tube terminates 2.7 cm and the elida. 2. Cardiomegaly with mild central pulmonary vascular congestion. Electronically signed by: Yoav Valenzuela M.D. 05/07/2017 10:21 PM Dictated Date/Time: 05/07/2017 10:19 PM Impression Assessment and Plan ANGIOEDEMA OF THE LIPS AND TONGUE - taken to the OR for emergent intubation done by Anesthesiologist using a fiberoptically device - As per Anesthesiologist throat did not look swollen - Received epi pen, IV steroid, Benadryl and Zantac in the ER -CXR showed endotracheal tube in good position. Cardiomegaly with mild central pulmonary vascular congestion. - FFP was given - Hold lisinopril - Will resume his oral meds in am via tube. - On propofol for sedation - Will start on IV solumedrol 40mg, Benaryl 50 and Pepcid - Morphine for pain - Gentle IVF - Case discussed with Eligibility Clerk Dr. Sexton who agreed with the plan - Might need a CT of soft tissue neck prior to extubation after edema of the tongue and lips resolves. - Monitor electrolytes, check ABG and CXR in am - Duoneb for breathing treatment - Continue Monitor in the ICU closely HTN BP was elevated on admission Possible due to situational and anxiety BP stable now said that pt stopped the Norvasc on his own due to LE swelling Has been taking lasix daily Hold BP meds for now CHEMA Creatine on admission 1.5 Creatine was 1.2 on 05/02 Possible due to daily lasix (was suposed to be taking prn) Gentle IVF Hold lasix and lisinopril Dyslipidemia on Lipitor hs DVT PX on heparin subq CODE STATUS FULL CODE as per Level of Care Critical Care Resuscitation Status FULL RESUSCITATION VTE Prophylaxis VTE Risk Assessment Done? Y/N: Yes Risk Level: Moderate Given or contraindicated: Unfractionated heparin SQ Note Total Time: Critical Care 30 - 74 minutes Additional Copies To Griselda Good M.D. (MEDICAL)
[2017-05-07 23:14] VITALS: BP 93/52; PULSE 62; TEMP 37.1; O2SAT 97
[2017-05-07] MEDS: SODIUM CHLORIDE 0.9% 1000ML 1,000 ML IV SCH (23:16)
--- NOTE | 2017-05-07 23:23 | Anesthesiology Progress Note ---
Anesthesia Post Op Note Date & Time May 07, 2017 at 23:17 Vital Signs Pain Intensity: 0.0 Vital Signs Past 12 Hours Date Time Temp Pulse Resp B/P (MAP) Pulse Ox O2 Delivery O2 Flow Rate FiO2 05/07/17 23:14 37.1 62 18 93/52 97 05/07/17 22:33 37.2 64 14 114/56 97 Mechanical Ventilator 50 05/07/17 22:20 36.3 68 14 118/58 99 Mechanical Ventilator 50 05/07/17 22:15 50 05/07/17 22:10 36.3 69 14 96/48 99 Mechanical Ventilator 50 05/07/17 22:00 60 05/07/17 22:00 36.3 74 14 113/85 99 Mechanical Ventilator 60 05/07/17 21:06 99 20 98 Non-Rebreather 15.0 05/07/17 20:55 100 18 170/110 98 Mask 12.0 05/07/17 20:37 37.3 110 22 208/110 91 Room Air 05/07/17 20:37 91 Room Air 05/07/17 20:37 109 05/07/17 20:34 91 Room Air Notes Mental Status: see Notes Pt Amnestic to Procedure: Yes Nausea / Vomiting: adequately controlled Pain: adequately controlled Airway Patency, RR, SpO2: stable & adequate, see Notes BP & HR: stable & adequate Hydration State: stable & adequate Anesthetic Complications: no major complications apparent Pt presented with massive edema of lips and tongue. Risk of airway obstruction was significant and pt was therefor transported to OR for intubation. Given IV sedation and topical anesthesia, pt was orally intubated with FOB without difficulty. Sedated and transported to SICU and placed on [facility] ventilator. CXR done, showed ETT tip mid-trachea. Report given to SICU staff and hospitalist Dr Foreman who agreed to assume care of pt in SICU in conjunction with technical consultant Dr. Sexton.
[2017-05-07 23:27] LABS: ISTAT ALLEN TEST Pass; ISTAT ARTERIAL BLOOD GAS HCO3 29 meq/L (19-24); ISTAT ARTERIAL BLOOD GAS PCO2 61 mmHg (35-46); ISTAT ARTERIAL BLOOD GAS PO2 96 mmHg (80-95); ISTAT ARTERIAL BLOOD GAS pH 7.29 (7.35-7.45); ISTAT CARBON DIOXIDE 31 mEq/l (24-31); ISTAT DELIVERY SYSTEM Ventilator; ISTAT FIO2 50 %; ISTAT PEEP 5; ISTAT RATE 14; ISTAT SITE R Radial; VE 7.6; Vt 550
[2017-05-07] MEDS: ALBUT/IPRATROP 3MG/0.5MG NEB 3 ML VIAL INH SCH (23:28)
[2017-05-07 23:30] VITALS: BP 107/52; PULSE 61; TEMP 37.1; O2SAT 98
[2017-05-07] MEDS: METHYLPREDNISOLONE IV 40 MG in SYRINGE 0 ML IV SCH (23:47)
[2017-05-08] VITALS (47 sets, daily range): BP systolic 101–165; BP diastolic 49–114; PULSE 58–97; TEMP 36.5–37.2; O2SAT 93–99
[2017-05-08] MEDS ORDERED: METHYLPREDNISOLONE IV 40 MG in SYRINGE 0 ML IV SCH
[2017-05-08 01:20] LABS: MANUAL MICROSCOPIC REQUIRED? NO; REVIEW REQ? YES; URINE APPEARANCE CLEAR (CLEAR); URINE BILIRUBIN NEG (NEG); URINE COLOR DK YELLOW; URINE EPITHELIAL CELL AUTO >30 /lpf (0-5); URINE NITRITE NEG (NEG); URINE SPECIFIC GRAVITY 1.026 (1.000-1.030); UROBILINOGEN NEG (NEG)
[2017-05-08 01:21] LABS: PROTHROMBIN TIME (PATIENT) 10.3 SECONDS (9.0-12.0)
[2017-05-08] MEDS ORDERED: ONDANSETRON INJ 2 MG/ML 2 ML VIAL ONE (01:58)
[2017-05-08] MEDS ORDERED: NURSING VERBAL MED ORDER ONE (02:00)
[2017-05-08 02:27] LABS: ISTAT ALLEN TEST Pass; ISTAT ARTERIAL BLOOD GAS HCO3 26 meq/L (19-24); ISTAT ARTERIAL BLOOD GAS PCO2 59 mmHg (35-46); ISTAT ARTERIAL BLOOD GAS PO2 95 mmHg (80-95); ISTAT ARTERIAL BLOOD GAS pH 7.25 (7.35-7.45); ISTAT CARBON DIOXIDE 28 mEq/l (24-31); ISTAT DELIVERY SYSTEM Ventilator; ISTAT FIO2 40 %; ISTAT PEEP 5; ISTAT RATE 18; ISTAT SITE R Radial; VE 10; Vt 550
[2017-05-08] MEDS ORDERED: ONDANSETRON INJ 2 MG/ML 2 ML VIAL IV PRN (02:30)
[2017-05-08] MEDS: PROPOFOL IV EMULSION 10 MG/ML 100 ML VIAL IV PRN ×6 (03:18→21:53)
[2017-05-08] MEDS: ALBUT/IPRATROP 3MG/0.5MG NEB 3 ML VIAL INH SCH ×2 (03:20→08:12)
[2017-05-08] MEDS: DiphenhydrAMINE HCL 50 MG/ML VIAL IV SCH ×3 (04:14→20:24)
[2017-05-08 05:45] LABS: ISTAT VENOUS BLOOD GAS pH 7.37 (7.36-7.41)
[2017-05-08 05:45] LABS: ISTAT ALLEN TEST Pass; ISTAT ARTERIAL BLOOD GAS HCO3 27 meq/L (19-24); ISTAT ARTERIAL BLOOD GAS PCO2 42 mmHg (35-46); ISTAT ARTERIAL BLOOD GAS PO2 65 mmHg (80-95); ISTAT ARTERIAL BLOOD GAS pH 7.42 (7.35-7.45); ISTAT CARBON DIOXIDE 28 mEq/l (24-31); ISTAT DELIVERY SYSTEM Ventilator; ISTAT FIO2 40 %; ISTAT PEEP 5; ISTAT RATE 20; ISTAT SITE R Radial; VE 11.8; Vt 600
[2017-05-08] MEDS ORDERED: DiphenhydrAMINE INJ 50 MG in SYRINGE 0 ML IV SCH (06:00)
[2017-05-08] MEDS: HEPARIN SOD 5000 UNIT/0.5 ML CARP SQ SCH ×3 (06:01→20:26)
[2017-05-08 06:06] LABS: HEMATOCRIT 42.1 % (42-52); MEAN CELL VOLUME 91.3 fL (80-100); MEAN CORPUSCULAR HEMOGLOBIN 30.6 pg (25-34); MEAN CORPUSCULAR HGB CONC 33.5 g/dl (32-36); MEAN PLATELET VOLUME 11.2 fL (7.4-10.4); PLATELET COUNT 175 K/uL (130-400); RED BLOOD COUNT 4.61 M/uL (4.7-6.1); WHITE BLOOD COUNT 12.16 K/uL (4.8-10.8)
[2017-05-08 06:47] LABS: BUN/CREATININE RATIO 17.2 (10-20); CREATININE 1.1 mg/dl (0.60-1.40); MAGNESIUM 2.2 mg/dl (1.8-2.4); PHOSPHORUS 2.5 mg/dl (2.5-4.9); POTASSIUM 4.3 mmol/L (3.5-5.1)
--- NOTE | 2017-05-08 08:15 | DIAGNOSTIC IMAGING REPORT ---
CHEST ONE VIEW PORTABLE CLINICAL HISTORY: Intubation. COMPARISON STUDY: Chest radiograph May 07, 2017. FINDINGS: The tip of the endotracheal tube is approximately 4.9 cm above the elida. Lung volumes are diminished. This is unchanged. There is no pneumothorax or pleural effusion. Note is made of hazy left basilar opacity. There is mild enlargement of the cardiac silhouette. IMPRESSION: 1. Tip of endotracheal tube 4.9 cm above the elida. 2. Diminished lung volumes with bibasilar opacities, left greater than right, which could reflect atelectasis or consolidation. Electronically signed by: Gurpreet Almanza M.D. 05/08/2017 8:13 AM Dictated Date/Time: 05/08/2017 8:11 AM
--- NOTE | 2017-05-08 08:16 | Ears,Nose,Throat Progress Note ---
Progress Note Date of Service May 08, 2017. Subjective Pt evaluation today including: physical exam, chart review 52 yo male with angioedema s/p fiberoptic intubation last night by anesthesia service. Sedated and intubated. Objective Vital Signs Date Time Temp Pulse Resp B/P (MAP) Pulse Ox O2 Delivery O2 Flow Rate FiO2 05/08/17 06:00 64 20 128/87 (101) 97 Mechanical Ventilator 05/08/17 05:05 40 05/08/17 04:00 97 Mechanical Ventilator 40 05/08/17 04:00 36.5 61 20 127/72 (90) 97 Mechanical Ventilator 40 05/08/17 04:00 40 05/08/17 03:20 40 05/08/17 02:16 40 05/08/17 02:00 65 18 152/80 (104) 97 Mechanical Ventilator 40 05/08/17 01:49 36.9 65 18 115/62 99 05/08/17 01:36 40 05/08/17 00:55 37.0 62 18 124/67 96 05/08/17 00:25 36.9 60 18 121/66 98 05/08/17 00:10 36.9 60 18 120/81 99 05/08/17 00:00 63 18 120/81 (94) 99 Mechanical Ventilator 50 05/08/17 00:00 50 05/08/17 00:00 98 Mechanical Ventilator 50 05/07/17 23:30 37.1 61 18 107/52 98 05/07/17 23:28 50 05/07/17 23:18 50 05/07/17 23:14 37.1 62 18 93/52 97 05/07/17 22:33 37.2 64 14 114/56 97 Mechanical Ventilator 50 05/07/17 22:20 36.3 68 14 118/58 99 Mechanical Ventilator 50 05/07/17 22:15 50 05/07/17 22:10 36.3 69 14 96/48 99 Mechanical Ventilator 50 05/07/17 22:00 60 05/07/17 22:00 36.3 74 14 113/85 99 Mechanical Ventilator 60 05/07/17 21:06 99 20 98 Non-Rebreather 15.0 05/07/17 20:55 100 18 170/110 98 Mask 12.0 05/07/17 20:37 37.3 110 22 208/110 91 Room Air 05/07/17 20:37 91 Room Air 05/07/17 20:37 109 05/07/17 20:34 91 Room Air Physical Exam General Appearance: + pertinent finding (Intubated. Sedated) ENT: + pertinent finding (Lip and tongue swelling improved from last night. Still has mild to moderate edema. ) Laboratory Results Last 24 Hours Test 05/07/17 20:43 05/07/17 20:53 05/07/17 23:13 05/08/17 00:36 White Blood Count 11.06 K/uL Red Blood Count 5.78 M/uL Hemoglobin 17.7 g/dL Hematocrit 52.3 % Mean Corpuscular Volume 90.5 fL Mean Corpuscular Hemoglobin 30.6 pg Mean Corpuscular Hemoglobin Concent 33.8 g/dl Platelet Count 213 K/uL Mean Platelet Volume 11.6 fL Neutrophils (%) (Auto) 59.3 % Lymphocytes (%) (Auto) 27.3 % Monocytes (%) (Auto) 7.5 % Eosinophils (%) (Auto) 5.2 % Basophils (%) (Auto) 0.2 % Neutrophils # (Auto) 6.57 K/uL Lymphocytes # (Auto) 3.02 K/uL Monocytes # (Auto) 0.83 K/uL Eosinophils # (Auto) 0.57 K/uL Basophils # (Auto) 0.02 K/uL RDW Standard Deviation 45.9 fL RDW Coefficient of Variation 13.9 % Immature Granulocyte % (Auto) 0.5 % Immature Granulocyte # (Auto) 0.05 K/uL Prothrombin Time 10.3 SECONDS Prothromb Time International Ratio 1.0 Sodium Level 140 mmol/L Potassium Level 3.6 mmol/L Chloride Level 104 mmol/L Carbon Dioxide Level 28 mmol/L Anion Gap 8.0 mmol/L Blood Urea Nitrogen 16 mg/dl Creatinine 1.50 mg/dl Est Creatinine Clear Calc Drug Dose 88.5 ml/min Estimated GFR () 60.3 Estimated GFR (Non- 52.0 BUN/Creatinine Ratio 10.9 Random Glucose 144 mg/dl Calcium Level 9.0 mg/dl Total Bilirubin 0.3 mg/dl Direct Bilirubin 0.1 mg/dl Aspartate Amino Transf (AST/SGOT) 47 U/L Alanine Aminotransferase (ALT/SGPT) 66 U/L Alkaline Phosphatase 63 U/L Total Protein 8.0 gm/dl Albumin 4.0 gm/dl Lipase 161 U/L Blood Gas Sample Site R Radial Bedside Blood Gas pH (LAB) 7.29 Bedside Blood Gas pCO2 (LAB) 61 mmHg Bedside Blood Gas pO2 (LAB) 96 mmHg Bedside Blood Gas HCO3 (LAB) 29 meq/L Bedside Blood Gas Total CO2 31 mEq/l Bedside Blood Gas Base Excess (LAB) 2.0 meq/L Bedside Blood Gas O2 Saturation 96.0 % Kavon Test Pass Oxygen Delivery Device Ventilator Bedside Oxygen Rate (breaths/min) 14 Blood Gas Minute Ventilation 7.6 Bedside FiO2 50 % Blood Gas Tidal Volume 550 Blood Gas PEEP 5 Bedside Glucose 133 mg/dl Test 05/08/17 00:45 05/08/17 02:14 05/08/17 05:20 05/08/17 05:29 Urine Color DK YELLOW Urine Appearance CLEAR Urine pH 5.0 Urine Specific [place] 1.026 Urine Protein 1+ Urine Glucose (UA) NEG Urine Ketones TRACE Urine Occult Blood TRACE Urine Nitrite NEG Urine Bilirubin NEG Urine Urobilinogen NEG Urine Leukocyte Esterase NEG Urine WBC (Auto) 1-5 /hpf Urine RBC (Auto) 5-10 /hpf Urine Hyaline Casts (Auto) 10-30 /lpf Urine Epithelial Cells (Auto) >30 /lpf Urine Bacteria (Auto) NEG Urine Pathogenic Casts /lpf Blood Gas Sample Site R Radial R Radial Bedside Blood Gas pH (LAB) 7.25 7.42 Bedside Blood Gas pCO2 (LAB) 59 mmHg 42 mmHg Bedside Blood Gas pO2 (LAB) 95 mmHg 65 mmHg Bedside Blood Gas HCO3 (LAB) 26 meq/L 27 meq/L Bedside Blood Gas Total CO2 28 mEq/l 28 mEq/l Bedside Blood Gas Base Excess (LAB) -1.0 meq/L 3.0 meq/L Bedside Blood Gas O2 Saturation 96.0 % 93.0 % Kavon Test Pass Pass Oxygen Delivery Device Ventilator Ventilator Bedside Oxygen Rate (breaths/min) 18 20 Blood Gas Minute Ventilation 10 11.8 Bedside FiO2 40 % 40 % 40 % Blood Gas Tidal Volume 550 600 Blood Gas PEEP 5 5 Bedside Venous pH 7.37 Bedside Venous pCO2 45 mmHg Bedside Venous pO2 40 mmHg Bedside Venous HCO3 26 meq/L Bedside Venous Blood Total CO2 28 mEq/l Bedside Venous Blood O2 Saturation 74.0 % Bedside Venous Blood Base Excess 1.0 meq/L Test 05/08/17 05:35 05/08/17 06:24 White Blood Count 12.16 K/uL Red Blood Count 4.61 M/uL Hemoglobin 14.1 g/dL Hematocrit 42.1 % Mean Corpuscular Volume 91.3 fL Mean Corpuscular Hemoglobin 30.6 pg Mean Corpuscular Hemoglobin Concent 33.5 g/dl RDW Standard Deviation 47.5 fL RDW Coefficient of Variation 14.1 % Platelet Count 175 K/uL Mean Platelet Volume 11.2 fL Sodium Level 141 mmol/L Potassium Level 4.3 mmol/L Chloride Level 106 mmol/L Carbon Dioxide Level 28 mmol/L Anion Gap 7.0 mmol/L Blood Urea Nitrogen 19 mg/dl Creatinine 1.10 mg/dl Est Creatinine Clear Calc Drug Dose 122.1 ml/min Estimated GFR () 87.7 Estimated GFR (Non- 75.7 BUN/Creatinine Ratio 17.2 Random Glucose 157 mg/dl Phosphorus Level 2.5 mg/dl Magnesium Level 2.2 mg/dl Bedside Glucose 163 mg/dl Assessment and Plan 52 yo male with severe allergic reaction/angioedema of the lips and tongue. - improved lip and tongue edema - would recommend waiting another 24 hrs prior to extubation due to the residual edema - continue steroids and medical management per primary service
--- NOTE | 2017-05-08 09:16 | Critical Care Consultation ---
Critical Care Consultation Date of Consultation: May 08, 2017. Attending Physician: Fannie Casillas DO Reason for Consultation: ICU Management History of Present Illness Mr Hendrix is a 52 yo M with hypertension, hyperlipidemia, and obesity, who presents with angioedema of the lips. He is currently intubated and mildly sedated so history was unable to be obtained from him. Per review of records, the pt takes Lisinopril but has not had this type of reaction yesterday. He had eaten seafood around 6pm on 05/07/17 (1 day ago). He was also working outside with [employer] when the sx started. He reported swelling of the lips and tongue, and his gave her 50mg Benadryl. Other medications he recently took include oxycodone, zofran, and flomax, from when he came to the ED a week ago for a kidney stone. In the ED, he was given epinephrine, steroids, benadryl, and was taken to the OR for emergent intubation by ENT / Anesthesia. He also received 2 units of FFP. Overnight he has been calm, and occasionally awakening, and follow commands though is drowsy. He has remained on Propofol for sedation. When he does wake up, he pulls at his tubes. He has persistent edema of the lips. Past Medical/Surgical History PMHx: Hypertension, obesity, hyperlipidemia, gout. PSHx: Unknown. Family History No pertinent family history Social History Smoking Status: Former Smoker Drug Use: none Marital Status: Housing Status: lives with family Occupation Status: unemployed Allergies Coded Allergies: No Known Allergies (Unverified , 06/07/16) Home Medications Scheduled Allopurinol (Zyloprim), 300 MG PO DAILY Amlodipine (Norvasc), 5 MG PO DAILY Aspirin (Aspirin Ec), 81 MG PO DAILY Atorvastatin (Lipitor), 10 MG PO DAILY Bupropion (Wellbutrin Sr), 150 MG PO BID Lisinopril (Zestril), 40 MG PO DAILY Scheduled PRN Furosemide (Lasix), 20 MG PO DAILY PRN for EDEMA Current Inpatient Medications Current Inpatient Medications Medications (Trade) Dose Ordered Sig/Christopher Route Start Time Stop Time Status Last Admin Dose Admin Morphine Sulfate (MoRPHine SULFATE INJ) 2 mg Q4 PRN IV 05/07/17 22:00 05/21/17 21:59 Sodium Chloride 1,000 ml @ 100 mls/hr Q10H IV 05/07/17 22:15 06/06/17 22:14 05/07/17 23:16 100 MLS/HR Famotidine 20 mg/ Dextrose 102 ml @ 200 mls/hr Q12@0800,2000 IV 05/08/17 08:00 06/07/17 07:59 Propofol (Diprivan Iv Emulsion 100ml Vial) 1 dose UD PRN IV 05/07/17 22:30 05/10/17 22:29 05/08/17 05:59 1 DOSE Albuterol/ Ipratropium (Duoneb) 3 ml Q4R INH 05/08/17 00:00 06/07/17 00:00 05/08/17 08:12 3 ML Diphenhydramine HCl (Benadryl Inj) 50 mg Q8@0400,1200,2000 IV 05/08/17 04:00 06/07/17 03:59 05/08/17 04:14 50 MG Methylprednisolone Sodium Succinate 40 mg/Syringe 0.64 ml @ 1.5 mls/min Q8@0000,0800,1600 IV 05/08/17 00:00 06/07/17 00:00 05/07/17 23:47 1.5 MLS/MIN Heparin Sodium (Porcine) (Heparin Sq 5000 Unit/0.5ml) 5,000 unit Q8 SQ 05/08/17 06:00 06/07/17 05:59 05/08/17 06:01 5,000 UNIT Ondansetron HCl (Zofran Inj) 4 mg Q6H PRN IV 05/08/17 02:30 06/07/17 02:29 Review of Systems Unable to obtain ROS due to pt being intubated and sedated. Physical Exam Date Time Temp Pulse Resp B/P (MAP) Pulse Ox O2 Delivery O2 Flow Rate FiO2 05/08/17 06:00 64 20 128/87 (101) 97 Mechanical Ventilator 05/08/17 05:05 40 05/08/17 04:00 97 Mechanical Ventilator 40 05/08/17 04:00 36.5 61 20 127/72 (90) 97 Mechanical Ventilator 40 05/08/17 04:00 40 05/08/17 03:20 40 05/08/17 02:16 40 05/08/17 02:00 65 18 152/80 (104) 97 Mechanical Ventilator 40 05/08/17 01:49 36.9 65 18 115/62 99 05/08/17 01:36 40 05/08/17 00:55 37.0 62 18 124/67 96 05/08/17 00:25 36.9 60 18 121/66 98 05/08/17 00:10 36.9 60 18 120/81 99 05/08/17 00:00 63 18 120/81 (94) 99 Mechanical Ventilator 50 05/08/17 00:00 50 05/08/17 00:00 98 Mechanical Ventilator 50 05/07/17 23:30 37.1 61 18 107/52 98 05/07/17 23:28 50 05/07/17 23:18 50 05/07/17 23:14 37.1 62 18 93/52 97 05/07/17 22:33 37.2 64 14 114/56 97 Mechanical Ventilator 50 05/07/17 22:20 36.3 68 14 118/58 99 Mechanical Ventilator 50 05/07/17 22:15 50 05/07/17 22:10 36.3 69 14 96/48 99 Mechanical Ventilator 50 05/07/17 22:00 60 05/07/17 22:00 36.3 74 14 113/85 99 Mechanical Ventilator 60 05/07/17 21:06 99 20 98 Non-Rebreather 15.0 05/07/17 20:55 100 18 170/110 98 Mask 12.0 05/07/17 20:37 37.3 110 22 208/110 91 Room Air 05/07/17 20:37 91 Room Air 05/07/17 20:37 109 05/07/17 20:34 91 Room Air General Appearance: well-appearing, obese Head: normocephalic, atraumatic Eyes: PERRLA ENT: normal ear exam, other (ET tube at 26cm) Neck: normal range of motion, no tenderness, supple Cardiovasular: normal S1S2, no M/G/R Abdomen: non tender, no rebound, no masses, no guarding Back: normal inspection, no CVA tenderness Upper Extremities: no edema, normal ROM Lower Extremities: no edema, normal ROM Neuro: other (RASS -1. CAM negative) Laboratory Results Last 24 Hours Test 05/07/17 20:43 05/07/17 20:53 05/07/17 23:13 05/08/17 00:36 White Blood Count 11.06 K/uL Red Blood Count 5.78 M/uL Hemoglobin 17.7 g/dL Hematocrit 52.3 % Mean Corpuscular Volume 90.5 fL Mean Corpuscular Hemoglobin 30.6 pg Mean Corpuscular Hemoglobin Concent 33.8 g/dl Platelet Count 213 K/uL Mean Platelet Volume 11.6 fL Neutrophils (%) (Auto) 59.3 % Lymphocytes (%) (Auto) 27.3 % Monocytes (%) (Auto) 7.5 % Eosinophils (%) (Auto) 5.2 % Basophils (%) (Auto) 0.2 % Neutrophils # (Auto) 6.57 K/uL Lymphocytes # (Auto) 3.02 K/uL Monocytes # (Auto) 0.83 K/uL Eosinophils # (Auto) 0.57 K/uL Basophils # (Auto) 0.02 K/uL RDW Standard Deviation 45.9 fL RDW Coefficient of Variation 13.9 % Immature Granulocyte % (Auto) 0.5 % Immature Granulocyte # (Auto) 0.05 K/uL Prothrombin Time 10.3 SECONDS Prothromb Time International Ratio 1.0 Sodium Level 140 mmol/L Potassium Level 3.6 mmol/L Chloride Level 104 mmol/L Carbon Dioxide Level 28 mmol/L Anion Gap 8.0 mmol/L Blood Urea Nitrogen 16 mg/dl Creatinine 1.50 mg/dl Est Creatinine Clear Calc Drug Dose 88.5 ml/min Estimated GFR () 60.3 Estimated GFR (Non- 52.0 BUN/Creatinine Ratio 10.9 Random Glucose 144 mg/dl Calcium Level 9.0 mg/dl Total Bilirubin 0.3 mg/dl Direct Bilirubin 0.1 mg/dl Aspartate Amino Transf (AST/SGOT) 47 U/L Alanine Aminotransferase (ALT/SGPT) 66 U/L Alkaline Phosphatase 63 U/L Total Protein 8.0 gm/dl Albumin 4.0 gm/dl Lipase 161 U/L Blood Gas Sample Site R Radial Bedside Blood Gas pH (LAB) 7.29 Bedside Blood Gas pCO2 (LAB) 61 mmHg Bedside Blood Gas pO2 (LAB) 96 mmHg Bedside Blood Gas HCO3 (LAB) 29 meq/L Bedside Blood Gas Total CO2 31 mEq/l Bedside Blood Gas Base Excess (LAB) 2.0 meq/L Bedside Blood Gas O2 Saturation 96.0 % Kavon Test Pass Oxygen Delivery Device Ventilator Bedside Oxygen Rate (breaths/min) 14 Blood Gas Minute Ventilation 7.6 Bedside FiO2 50 % Blood Gas Tidal Volume 550 Blood Gas PEEP 5 Bedside Glucose 133 mg/dl Test 05/08/17 00:45 05/08/17 02:14 05/08/17 05:20 05/08/17 05:29 Urine Color DK YELLOW Urine Appearance CLEAR Urine pH 5.0 Urine Specific [place] 1.026 Urine Protein 1+ Urine Glucose (UA) NEG Urine Ketones TRACE Urine Occult Blood TRACE Urine Nitrite NEG Urine Bilirubin NEG Urine Urobilinogen NEG Urine Leukocyte Esterase NEG Urine WBC (Auto) 1-5 /hpf Urine RBC (Auto) 5-10 /hpf Urine Hyaline Casts (Auto) 10-30 /lpf Urine Epithelial Cells (Auto) >30 /lpf Urine Bacteria (Auto) NEG Urine Pathogenic Casts /lpf Blood Gas Sample Site R Radial R Radial Bedside Blood Gas pH (LAB) 7.25 7.42 Bedside Blood Gas pCO2 (LAB) 59 mmHg 42 mmHg Bedside Blood Gas pO2 (LAB) 95 mmHg 65 mmHg Bedside Blood Gas HCO3 (LAB) 26 meq/L 27 meq/L Bedside Blood Gas Total CO2 28 mEq/l 28 mEq/l Bedside Blood Gas Base Excess (LAB) -1.0 meq/L 3.0 meq/L Bedside Blood Gas O2 Saturation 96.0 % 93.0 % Kavon Test Pass Pass Oxygen Delivery Device Ventilator Ventilator Bedside Oxygen Rate (breaths/min) 18 20 Blood Gas Minute Ventilation 10 11.8 Bedside FiO2 40 % 40 % 40 % Blood Gas Tidal Volume 550 600 Blood Gas PEEP 5 5 Bedside Venous pH 7.37 Bedside Venous pCO2 45 mmHg Bedside Venous pO2 40 mmHg Bedside Venous HCO3 26 meq/L Bedside Venous Blood Total CO2 28 mEq/l Bedside Venous Blood O2 Saturation 74.0 % Bedside Venous Blood Base Excess 1.0 meq/L Test 05/08/17 05:35 05/08/17 06:24 White Blood Count 12.16 K/uL Red Blood Count 4.61 M/uL Hemoglobin 14.1 g/dL Hematocrit 42.1 % Mean Corpuscular Volume 91.3 fL Mean Corpuscular Hemoglobin 30.6 pg Mean Corpuscular Hemoglobin Concent 33.5 g/dl RDW Standard Deviation 47.5 fL RDW Coefficient of Variation 14.1 % Platelet Count 175 K/uL Mean Platelet Volume 11.2 fL Sodium Level 141 mmol/L Potassium Level 4.3 mmol/L Chloride Level 106 mmol/L Carbon Dioxide Level 28 mmol/L Anion Gap 7.0 mmol/L Blood Urea Nitrogen 19 mg/dl Creatinine 1.10 mg/dl Est Creatinine Clear Calc Drug Dose 122.1 ml/min Estimated GFR () 87.7 Estimated GFR (Non- 75.7 BUN/Creatinine Ratio 17.2 Random Glucose 157 mg/dl Phosphorus Level 2.5 mg/dl Magnesium Level 2.2 mg/dl Bedside Glucose 163 mg/dl Diagnostic Results CHEST ONE VIEW PORTABLE CLINICAL HISTORY: Intubation. COMPARISON STUDY: Chest radiograph May 07, 2017. FINDINGS: The tip of the endotracheal tube is approximately 4.9 cm above the elida. Lung volumes are diminished. This is unchanged. There is no pneumothorax or pleural effusion. Note is made of hazy left basilar opacity. There is mild enlargement of the cardiac silhouette. IMPRESSION: 1. Tip of endotracheal tube 4.9 cm above the elida. 2. Diminished lung volumes with bibasilar opacities, left greater than right, which could reflect atelectasis or consolidation. CHEST ONE VIEW PORTABLE HISTORY: Endotracheal tube placement. COMPARISON: None. FINDINGS: The endotracheal tube terminates approximately 2.7 cm from the elida. There are low lung volumes. The heart is enlarged. There is mild central pulmonary vascular congestion without overt edema. No pneumothorax. No pleural effusions. IMPRESSION: 1. The endotracheal tube terminates 2.7 cm and the elida. 2. Cardiomegaly with mild central pulmonary vascular congestion. Assessment & Plan 52 yo M with sudden onset lip swelling 1 day ago, necessitating airway protection with intubation - differential angioedema versus anaphylaxis. At this point will continue treating for both as are unable to differentiate at this time. NEURO: Restraints: Soft, non violent placed due to pulling at tubes / lines Sedation: Propofol. RESP: Vent: A/C mode. Changed tidal volume to 550mL, PEEP 5, FiO2 30%, Rate 20 Will obtain ABG later in the day Will keep pt intubated for at least 24 hours longer Will continue IV Steroids for now, may reassess later in the day Head of bed at 30 degrees CVS: Will keep Propofol at current rate as pt becomes hypotensive when increased GI: Prophylaxis: Famotidine IV ENDO: Glc 133 to 163 No insulin, will continue to monitor RENAL: NS at 100mL/hour HEME: DVT Prophylaxis: Heparin ID: No cultures / abx CODE STATUS: Full DISPO: Remain in ICU Resident Physician Supervision Note/Boiler Tender I received several calls about this patient last night and discussed his care with the ED attending and Dr. Foreman. This morning I examined him, reviewed the chart, discussed his care in detail on multidisciplinary rounds and with Dr. Nieves. I have reviewed her note and agree with her assessment and plan. I spoke to the anesthesia service about him this morning as well - he was intubated fiberoptically and it was felt that he did not have a lot of edema of the pharynx but instead of the lips and tongue. It's unclear to me if he had any hives on presentation and whether this is angioedema or anaphylaxis but I am leaning toward angioedema based on his hemodynamics, lack of definite urticaria and primary swelling of lips and tongue. He was on lisinopril, had [place] [employer] and was working with treated [employer] prior to this event and may require outpatient allergy testing. For now, I have ordered C4, C1 INH qualitative and functional assays - he did receive 2 units of FFP, however. He continues on IV steroids, anithistamine and H2 alivia on a scheduled basis. He is sedated with propofol and nods his head weakly to questions. We are keeping him well sedated and have soft wrist restraints for airway and patient safety. TV decreased to 550ml on the vent. Plan to keep him intubated and reassess edema and air leak tomorrow. Hold on tube feeds for now - no NGT or OG in place at present. Blood sugars are trending up and he may need an insulin SS. Morphine or fentanyl for discomfort. Please call with any questions or concerns. Critical care time 60min. Documented By: Natalie Sexton Resident Tracking Resident Involvement: Resident Care Provided Care Provided: Adult Hospital Medicine
[2017-05-08] MEDS: METHYLPREDNISOLONE IV 40 MG in SYRINGE 0 ML IV SCH ×2 (10:21→15:10)
[2017-05-08] MEDS: SODIUM CHLORIDE 0.9% 1000ML 1,000 ML IV SCH ×2 (10:25→17:10)
[2017-05-08] MEDS: FAMOTIDINE IV INJ 20 MG in DEXTROSE 5% 100ML 100 ML IV SCH ×2 (10:25→20:24)
[2017-05-08] MEDS ORDERED: MoRPHine SULFATE 2 MG/ML CARP IV STA (11:25)
[2017-05-08] MEDS: ALBUTEROL HFA 8 GM INHALER INH SCH ×3 (11:47→20:00)
[2017-05-08] MEDS: IPRATROPIUM BROMIDE HFA INHALER INH SCH ×3 (11:47→20:00)
[2017-05-08] MEDS ORDERED: FENTANYL CITRATE INJ 50 MCG/1 ML 2 ML VIAL IV STA (12:25)
[2017-05-08] MEDS ORDERED: FENTANYL 1250MCG/250ML NSS 250 ML IV PRN (12:30)
[2017-05-08 13:07] LABS: CALCIUM 8.6 mg/dl (8.5-10.1)
[2017-05-08 18:56] LABS: ISTAT ALLEN TEST Pass; ISTAT ARTERIAL BLOOD GAS HCO3 26 meq/L (19-24); ISTAT ARTERIAL BLOOD GAS PCO2 47 mmHg (35-46); ISTAT ARTERIAL BLOOD GAS PO2 72 mmHg (80-95); ISTAT ARTERIAL BLOOD GAS pH 7.35 (7.35-7.45); ISTAT CARBON DIOXIDE 27 mEq/l (24-31); ISTAT DELIVERY SYSTEM Ventilator; ISTAT FIO2 40 %; ISTAT PEEP 5; ISTAT RATE 20; ISTAT SITE R Radial; VE 10.1; Vt 550
[2017-05-08] MEDS ORDERED: DiphenhydrAMINE HCL 50 MG/ML VIAL ONE (20:22)
--- NOTE | 2017-05-08 22:29 | Progress Note ---
Medicine Progress Note Date & Time of Visit: May 08, 2017 at 16:03. Subjective 52 yo M with no h//o angioedema or allergies presents with angioedema of the lips and tongue requiring fiberoptic intubation by ENT. Remains on vent in ICU. Cannot obtain ROS as patient is intubated and sedated. Objective Last 8 Hrs Date Time Temp Pulse Resp B/P (MAP) Pulse Ox O2 Delivery O2 Flow Rate FiO2 05/08/17 15:04 40 05/08/17 13:16 66 111/52 (71) 93 05/08/17 13:01 72 101/49 (66) 93 05/08/17 12:16 97 165/98 (120) 98 05/08/17 12:10 36.6 91 137/114 (122) 96 05/08/17 12:00 40 05/08/17 12:00 94 Mechanical Ventilator 40 05/08/17 11:55 40 05/08/17 10:01 61 114/60 (78) 95 05/08/17 08:46 60 112/57 (75) 95 05/08/17 08:31 60 108/59 (75) 95 05/08/17 08:16 64 123/61 (81) 95 05/08/17 08:10 40 Physical Exam: GEN: obese, sedated and intubated HEENT: NC/AT, PERRL, normal sclerae, ETT in place. CARDIO: reg rate, S1/2 heard without m/g/r LUNGS: CTA bilaterally, no crackles, rales or wheezes, good diaphragmatic excursion ABD: soft, non-tender, non-distended, +BS EXTREMITY: RP and DP palpable 2+ bilat, no LE swelling or edema, extremities are warm and well-perfused NEURO: could not assess as he is sedated. MUSC: could not assess as he is sedated. SKIN: warm and dry Laboratory Results: 05/08/17 05:35 05/08/17 05:35 Test 05/07/17 20:43 05/07/17 20:53 05/08/17 00:45 05/08/17 05:29 Immature Granulocyte % (Auto) 0.5 % White Blood Count 11.06 K/uL (4.8-10.8) Red Blood Count 5.78 M/uL (4.7-6.1) Hemoglobin 17.7 g/dL (14.0-18.0) Hematocrit 52.3 % (42-52) Mean Corpuscular Volume 90.5 fL (80-100) Mean Corpuscular Hemoglobin 30.6 pg (25-34) Mean Corpuscular Hemoglobin Concent 33.8 g/dl (32-36) Platelet Count 213 K/uL (130-400) Mean Platelet Volume 11.6 fL (7.4-10.4) Neutrophils (%) (Auto) 59.3 % Lymphocytes (%) (Auto) 27.3 % Monocytes (%) (Auto) 7.5 % Eosinophils (%) (Auto) 5.2 % Basophils (%) (Auto) 0.2 % Neutrophils # (Auto) 6.57 K/uL (1.4-6.5) Lymphocytes # (Auto) 3.02 K/uL (1.2-3.4) Monocytes # (Auto) 0.83 K/uL (0.11-0.59) Eosinophils # (Auto) 0.57 K/uL (0-0.5) Basophils # (Auto) 0.02 K/uL (0-0.2) Immature Granulocyte # (Auto) 0.05 K/uL (0.00-0.02) Prothrombin Time 10.3 SECONDS (9.0-12.0) Prothromb Time International Ratio 1.0 (0.9-1.1) Total Bilirubin 0.3 mg/dl (0.2-1) Direct Bilirubin 0.1 mg/dl (0-0.2) Aspartate Amino Transf (AST/SGOT) 47 U/L (15-37) Alanine Aminotransferase (ALT/SGPT) 66 U/L (12-78) Alkaline Phosphatase 63 U/L (45-117) Total Protein 8.0 gm/dl (6.4-8.2) Albumin 4.0 gm/dl (3.4-5.0) Lipase 161 U/L (73-393) Urine Color DK YELLOW Urine Appearance CLEAR (CLEAR) Urine pH 5.0 (4.5-7.5) Urine Specific Scurry 1.026 (1.000-1.030) Urine Protein 1+ (NEG) Urine Glucose (UA) NEG (NEG) Urine Ketones TRACE (NEG) Urine Occult Blood TRACE (NEG) Urine Nitrite NEG (NEG) Urine Bilirubin NEG (NEG) Urine Urobilinogen NEG (NEG) Urine Leukocyte Esterase NEG (NEG) Urine WBC (Auto) 1-5 /hpf (0-5) Urine RBC (Auto) 5-10 /hpf (0-4) Urine Hyaline Casts (Auto) 10-30 /lpf (0-5) Urine Epithelial Cells (Auto) >30 /lpf (0-5) Urine Bacteria (Auto) NEG (NEG) Urine Pathogenic Casts /lpf (0) Bedside Venous pH 7.37 (7.36-7.41) Bedside Venous pCO2 45 mmHg (38.0-50.0) Bedside Venous pO2 40 mmHg (30-55) Bedside Venous HCO3 26 meq/L (23-28) Bedside Venous Blood Total CO2 28 mEq/l (24-31) Bedside Venous Blood O2 Saturation 74.0 % (70-80) Bedside Venous Blood Base Excess 1.0 meq/L Test 05/08/17 05:35 05/08/17 11:52 05/08/17 18:44 05/08/17 19:35 Red Blood Count 4.61 M/uL (4.7-6.1) Mean Corpuscular Volume 91.3 fL (80-100) Mean Corpuscular Hemoglobin 30.6 pg (25-34) Mean Corpuscular Hemoglobin Concent 33.5 g/dl (32-36) RDW Standard Deviation 47.5 fL (36.4-46.3) RDW Coefficient of Variation 14.1 % (11.5-14.5) Mean Platelet Volume 11.2 fL (7.4-10.4) Anion Gap 7.0 mmol/L (3-11) Est Creatinine Clear Calc Drug Dose 122.1 ml/min Estimated GFR () 87.7 Estimated GFR (Non- 75.7 BUN/Creatinine Ratio 17.2 (10-20) Calcium Level 8.6 mg/dl (8.5-10.1) Phosphorus Level 2.5 mg/dl (2.5-4.9) Magnesium Level 2.2 mg/dl (1.8-2.4) Thyroid Stimulating Hormone (TSH) 1.720 uIu/ml (0.300-4.500) Blood Gas Sample Site R Radial Bedside Blood Gas pH (LAB) 7.35 (7.35-7.45) Bedside Blood Gas pCO2 (LAB) 47 mmHg (35-46) Bedside Blood Gas pO2 (LAB) 72 mmHg (80-95) Bedside Blood Gas HCO3 (LAB) 26 meq/L (19-24) Bedside Blood Gas Total CO2 27 mEq/l (24-31) Bedside Blood Gas Base Excess (LAB) 0.0 meq/L (-9-1.8) Bedside Blood Gas O2 Saturation 93.0 % (90-95) Kavon Test Pass Oxygen Delivery Device Ventilator Bedside Oxygen Rate (breaths/min) 20 Blood Gas Minute Ventilation 10.1 Bedside FiO2 40 % Blood Gas Tidal Volume 550 Blood Gas PEEP 5 Bedside Glucose 122 mg/dl (70-99) Date/Time Source Procedure Growth Status 05/07/17 00:00 Nasal MRSA DNA Surveillance Screen - Final Specimen Positive for MRSA by DNA Probe Complete Last 24 Hours Test 05/07/17 20:43 05/07/17 20:53 05/07/17 23:13 05/08/17 00:36 White Blood Count 11.06 K/uL Red Blood Count 5.78 M/uL Hemoglobin 17.7 g/dL Hematocrit 52.3 % Mean Corpuscular Volume 90.5 fL Mean Corpuscular Hemoglobin 30.6 pg Mean Corpuscular Hemoglobin Concent 33.8 g/dl Platelet Count 213 K/uL Mean Platelet Volume 11.6 fL Neutrophils (%) (Auto) 59.3 % Lymphocytes (%) (Auto) 27.3 % Monocytes (%) (Auto) 7.5 % Eosinophils (%) (Auto) 5.2 % Basophils (%) (Auto) 0.2 % Neutrophils # (Auto) 6.57 K/uL Lymphocytes # (Auto) 3.02 K/uL Monocytes # (Auto) 0.83 K/uL Eosinophils # (Auto) 0.57 K/uL Basophils # (Auto) 0.02 K/uL RDW Standard Deviation 45.9 fL RDW Coefficient of Variation 13.9 % Immature Granulocyte % (Auto) 0.5 % Immature Granulocyte # (Auto) 0.05 K/uL Prothrombin Time 10.3 SECONDS Prothromb Time International Ratio 1.0 Sodium Level 140 mmol/L Potassium Level 3.6 mmol/L Chloride Level 104 mmol/L Carbon Dioxide Level 28 mmol/L Anion Gap 8.0 mmol/L Blood Urea Nitrogen 16 mg/dl Creatinine 1.50 mg/dl Est Creatinine Clear Calc Drug Dose 88.5 ml/min Estimated GFR () 60.3 Estimated GFR (Non- 52.0 BUN/Creatinine Ratio 10.9 Random Glucose 144 mg/dl Calcium Level 9.0 mg/dl Total Bilirubin 0.3 mg/dl Direct Bilirubin 0.1 mg/dl Aspartate Amino Transf (AST/SGOT) 47 U/L Alanine Aminotransferase (ALT/SGPT) 66 U/L Alkaline Phosphatase 63 U/L Total Protein 8.0 gm/dl Albumin 4.0 gm/dl Lipase 161 U/L Blood Gas Sample Site R Radial Bedside Blood Gas pH (LAB) 7.29 Bedside Blood Gas pCO2 (LAB) 61 mmHg Bedside Blood Gas pO2 (LAB) 96 mmHg Bedside Blood Gas HCO3 (LAB) 29 meq/L Bedside Blood Gas Total CO2 31 mEq/l Bedside Blood Gas Base Excess (LAB) 2.0 meq/L Bedside Blood Gas O2 Saturation 96.0 % Kavon Test Pass Oxygen Delivery Device Ventilator Bedside Oxygen Rate (breaths/min) 14 Blood Gas Minute Ventilation 7.6 Bedside FiO2 50 % Blood Gas Tidal Volume 550 Blood Gas PEEP 5 Bedside Glucose 133 mg/dl Test 05/08/17 00:45 05/08/17 02:14 05/08/17 05:20 05/08/17 05:29 Urine Color DK YELLOW Urine Appearance CLEAR Urine pH 5.0 Urine Specific Scurry 1.026 Urine Protein 1+ Urine Glucose (UA) NEG Urine Ketones TRACE Urine Occult Blood TRACE Urine Nitrite NEG Urine Bilirubin NEG Urine Urobilinogen NEG Urine Leukocyte Esterase NEG Urine WBC (Auto) 1-5 /hpf Urine RBC (Auto) 5-10 /hpf Urine Hyaline Casts (Auto) 10-30 /lpf Urine Epithelial Cells (Auto) >30 /lpf Urine Bacteria (Auto) NEG Urine Pathogenic Casts /lpf Blood Gas Sample Site R Radial R Radial Bedside Blood Gas pH (LAB) 7.25 7.42 Bedside Blood Gas pCO2 (LAB) 59 mmHg 42 mmHg Bedside Blood Gas pO2 (LAB) 95 mmHg 65 mmHg Bedside Blood Gas HCO3 (LAB) 26 meq/L 27 meq/L Bedside Blood Gas Total CO2 28 mEq/l 28 mEq/l Bedside Blood Gas Base Excess (LAB) -1.0 meq/L 3.0 meq/L Bedside Blood Gas O2 Saturation 96.0 % 93.0 % Kavon Test Pass Pass Oxygen Delivery Device Ventilator Ventilator Bedside Oxygen Rate (breaths/min) 18 20 Blood Gas Minute Ventilation 10 11.8 Bedside FiO2 40 % 40 % 40 % Blood Gas Tidal Volume 550 600 Blood Gas PEEP 5 5 Bedside Venous pH 7.37 Bedside Venous pCO2 45 mmHg Bedside Venous pO2 40 mmHg Bedside Venous HCO3 26 meq/L Bedside Venous Blood Total CO2 28 mEq/l Bedside Venous Blood O2 Saturation 74.0 % Bedside Venous Blood Base Excess 1.0 meq/L Test 05/08/17 05:35 05/08/17 06:24 05/08/17 11:52 05/08/17 12:37 White Blood Count 12.16 K/uL Red Blood Count 4.61 M/uL Hemoglobin 14.1 g/dL Hematocrit 42.1 % Mean Corpuscular Volume 91.3 fL Mean Corpuscular Hemoglobin 30.6 pg Mean Corpuscular Hemoglobin Concent 33.5 g/dl RDW Standard Deviation 47.5 fL RDW Coefficient of Variation 14.1 % Platelet Count 175 K/uL Mean Platelet Volume 11.2 fL Sodium Level 141 mmol/L Potassium Level 4.3 mmol/L Chloride Level 106 mmol/L Carbon Dioxide Level 28 mmol/L Anion Gap 7.0 mmol/L Blood Urea Nitrogen 19 mg/dl Creatinine 1.10 mg/dl Est Creatinine Clear Calc Drug Dose 122.1 ml/min Estimated GFR () 87.7 Estimated GFR (Non- 75.7 BUN/Creatinine Ratio 17.2 Random Glucose 157 mg/dl Calcium Level 8.6 mg/dl Phosphorus Level 2.5 mg/dl Magnesium Level 2.2 mg/dl Bedside Glucose 163 mg/dl 129 mg/dl Thyroid Stimulating Hormone (TSH) 1.720 uIu/ml Assessment & Plan 52 yo M with no h//o angioedema or allergies presents with angioedema of the lips and tongue requiring fiberoptic intubation by ENT. Remains on vent in ICU. ANGIOEDEMA OF THE LIPS AND TONGUE - taken to the OR for emergent intubation done by Anesthesiologist using a fiberoptically device - As per Anesthesiologist throat did not look swollen - Received epi pen, IV steroid, Benadryl and Zantac in the ER -CXR showed endotracheal tube in good position. Cardiomegaly with mild central pulmonary vascular congestion. - FFP was given - Hold lisinopril - On propofol/fentanyl for sedation - Will start on IV solumedrol 40mg, Benaryl 50 and Pepcid - Morphine for pain - Gentle IVF HTN-situational, currently controlled. Cont sedation CHEMA: resolved to baseline 1.1 today after IVF Dyslipidemia: takes Lipitor at home but PO meds on hold while intubated. DVT PX on heparin subq FULL CODE Dispo-cont ICU monitoring DO Zachary Dumont Hospitalist Consultants: ICU Current Inpatient Medications: Current Inpatient Medications Medications (Trade) Dose Ordered Sig/Christopher Route Start Time Stop Time Status Last Admin Dose Admin Morphine Sulfate (MoRPHine SULFATE INJ) 2 mg Q4 PRN IV 05/07/17 22:00 05/21/17 21:59 Sodium Chloride 1,000 ml @ 100 mls/hr Q10H IV 05/07/17 22:15 06/06/17 22:14 05/08/17 10:25 100 MLS/HR Famotidine 20 mg/ Dextrose 102 ml @ 200 mls/hr Q12@0800,2000 IV 05/08/17 08:00 06/07/17 07:59 05/08/17 10:25 200 MLS/HR Propofol (Diprivan Iv Emulsion 100ml Vial) 1 dose UD PRN IV 05/07/17 22:30 05/10/17 22:29 05/08/17 13:48 1 DOSE Albuterol/ Ipratropium (Duoneb) 3 ml Q4R INH 05/08/17 00:00 06/07/17 00:00 Future Hold 05/08/17 08:12 3 ML Diphenhydramine HCl (Benadryl Inj) 50 mg Q8@0400,1200,2000 IV 05/08/17 04:00 06/07/17 03:59 05/08/17 12:13 50 MG Methylprednisolone Sodium Succinate 40 mg/Syringe 0.64 ml @ 1.5 mls/min Q8@0000,0800,1600 IV 05/08/17 00:00 06/07/17 00:00 05/08/17 15:10 1.5 MLS/MIN Heparin Sodium (Porcine) (Heparin Sq 5000 Unit/0.5ml) 5,000 unit Q8 SQ 05/08/17 06:00 06/07/17 05:59 05/08/17 13:48 5,000 UNIT Ondansetron HCl (Zofran Inj) 4 mg Q6H PRN IV 05/08/17 02:30 06/07/17 02:29 05/08/17 12:12 4 MG Ipratropium Collins (Atrovent Hfa Inhaler) 4 puffs Q4R INH 05/08/17 12:00 06/07/17 11:59 05/08/17 15:03 4 PUFFS Albuterol (Ventolin Hfa Inhaler) 4 puffs Q4R INH 05/08/17 12:00 06/07/17 11:59 05/08/17 15:03 4 PUFFS Fentanyl Citrate 250 ml @ 0 mls/hr Q0M PRN IV 05/08/17 12:30 05/22/17 12:29 05/08/17 15:10 50 MLS/HR
[2017-05-09] VITALS (17 sets, daily range): BP systolic 108–200; BP diastolic 58–113; PULSE 49–76; TEMP 36.7–37.1; O2SAT 28–98
[2017-05-09] MEDS: METHYLPREDNISOLONE IV 40 MG in SYRINGE 0 ML IV SCH ×3 (00:09→15:51)
[2017-05-09] MEDS: PROPOFOL IV EMULSION 10 MG/ML 100 ML VIAL IV PRN (00:51)
[2017-05-09] MEDS: ALBUTEROL HFA 8 GM INHALER INH SCH ×7 (03:05→23:57)
[2017-05-09] MEDS: IPRATROPIUM BROMIDE HFA INHALER INH SCH ×7 (03:05→23:58)
[2017-05-09] MEDS: SODIUM CHLORIDE 0.9% 1000ML 1,000 ML IV SCH ×2 (03:29→16:14)
[2017-05-09] MEDS: DiphenhydrAMINE HCL 50 MG/ML VIAL IV SCH ×3 (04:24→22:39)
[2017-05-09 05:45] LABS: COMPLETE YES; HEMATOCRIT 40.5 % (42-52); IG% 0.4 %; LYMPH % 6.3 %; LYMPH ABS # 0.86 K/uL (1.2-3.4); MEAN CELL VOLUME 92.3 fL (80-100); MEAN CORPUSCULAR HEMOGLOBIN 29.4 pg (25-34); MEAN CORPUSCULAR HGB CONC 31.9 g/dl (32-36); MEAN PLATELET VOLUME 11.3 fL (7.4-10.4); MONO % 5.9 %; NEUT % 87.4 %; PLATELET COUNT 177 K/uL (130-400); RED BLOOD COUNT 4.39 M/uL (4.7-6.1); WHITE BLOOD COUNT 13.74 K/uL (4.8-10.8)
[2017-05-09] MEDS: HEPARIN SOD 5000 UNIT/0.5 ML CARP SQ SCH ×3 (06:01→21:40)
--- NOTE | 2017-05-09 07:44 | Ears,Nose,Throat Progress Note ---
Progress Note Date of Service May 09, 2017. Subjective Pt evaluation today including: physical exam, chart review Patient with no issues overnight. Remains sedated and intubated. Objective Vital Signs Date Time Temp Pulse Resp B/P (MAP) Pulse Ox O2 Delivery O2 Flow Rate FiO2 05/09/17 07:10 40 05/09/17 06:00 51 20 122/63 (82) 96 Mechanical Ventilator 40 05/09/17 05:42 40 05/09/17 04:00 Mechanical Ventilator 40 05/09/17 04:00 40 05/09/17 04:00 37.1 49 20 122/68 (86) 96 Mechanical Ventilator 40 05/09/17 02:49 40 05/09/17 02:00 53 20 119/63 (81) 95 Mechanical Ventilator 40 05/09/17 00:00 36.7 56 20 108/58 (75) 94 Mechanical Ventilator 40 05/09/17 00:00 40 05/09/17 00:00 Mechanical Ventilator 40 05/08/17 23:15 40 05/08/17 22:01 37.2 58 20 125/65 94 05/08/17 21:46 59 20 123/67 94 05/08/17 21:31 59 20 122/67 94 05/08/17 21:16 58 20 124/68 95 05/08/17 21:01 58 20 118/66 96 05/08/17 20:51 40 05/08/17 20:46 58 20 128/69 96 05/08/17 20:31 60 20 123/69 96 05/08/17 20:16 59 20 124/66 94 05/08/17 20:01 37.0 61 20 122/68 96 05/08/17 20:00 Mechanical Ventilator 40 05/08/17 20:00 40 05/08/17 19:53 66 20 128/75 97 05/08/17 19:31 59 20 130/68 94 05/08/17 19:16 58 20 129/63 94 05/08/17 19:01 60 20 124/63 93 05/08/17 18:46 60 20 131/66 95 05/08/17 18:31 62 20 125/62 94 05/08/17 18:16 61 20 131/63 94 05/08/17 18:01 37.0 62 20 137/68 94 05/08/17 17:54 40 05/08/17 17:46 60 20 133/63 94 05/08/17 17:31 63 20 140/65 94 05/08/17 17:16 62 20 132/66 93 05/08/17 17:01 61 20 133/62 94 05/08/17 16:46 60 20 131/64 93 05/08/17 16:31 36.6 61 20 132/65 94 05/08/17 16:16 65 20 143/67 93 05/08/17 16:01 65 20 146/66 94 05/08/17 16:00 Mechanical Ventilator 40 05/08/17 16:00 40 05/08/17 15:46 67 20 138/66 93 05/08/17 15:31 69 20 140/62 93 05/08/17 15:04 40 05/08/17 15:00 36.8 65 20 93 05/08/17 13:16 66 111/52 (71) 93 05/08/17 13:01 72 101/49 (66) 93 05/08/17 12:16 97 165/98 (120) 98 05/08/17 12:10 36.6 91 137/114 (122) 96 05/08/17 12:00 40 05/08/17 12:00 94 Mechanical Ventilator 40 05/08/17 11:55 40 05/08/17 10:01 61 114/60 (78) 95 05/08/17 08:46 60 112/57 (75) 95 05/08/17 08:31 60 108/59 (75) 95 05/08/17 08:16 64 123/61 (81) 95 05/08/17 08:10 40 05/08/17 08:01 36.9 61 20 130/56 (80) 96 Mechanical Ventilator 05/08/17 08:00 40 05/08/17 08:00 Mechanical Ventilator 40 05/08/17 08:00 95 Mechanical Ventilator 40 Physical Exam General Appearance: no apparent distress, + pertinent finding (intubated, mildly sedated) ENT: + pertinent finding (lip and tongue edema improved again today. ) Laboratory Results Last 24 Hours Test 05/08/17 11:52 05/08/17 12:37 05/08/17 18:44 05/08/17 19:35 Thyroid Stimulating Hormone (TSH) 1.720 uIu/ml Bedside Glucose 129 mg/dl 122 mg/dl Blood Gas Sample Site R Radial Bedside Blood Gas pH (LAB) 7.35 Bedside Blood Gas pCO2 (LAB) 47 mmHg Bedside Blood Gas pO2 (LAB) 72 mmHg Bedside Blood Gas HCO3 (LAB) 26 meq/L Bedside Blood Gas Total CO2 27 mEq/l Bedside Blood Gas Base Excess (LAB) 0.0 meq/L Bedside Blood Gas O2 Saturation 93.0 % Kavon Test Pass Oxygen Delivery Device Ventilator Bedside Oxygen Rate (breaths/min) 20 Blood Gas Minute Ventilation 10.1 Bedside FiO2 40 % Blood Gas Tidal Volume 550 Blood Gas PEEP 5 Test 05/09/17 05:22 05/09/17 05:29 White Blood Count 13.74 K/uL Red Blood Count 4.39 M/uL Hemoglobin 12.9 g/dL Hematocrit 40.5 % Mean Corpuscular Volume 92.3 fL Mean Corpuscular Hemoglobin 29.4 pg Mean Corpuscular Hemoglobin Concent 31.9 g/dl Platelet Count 177 K/uL Mean Platelet Volume 11.3 fL Neutrophils (%) (Auto) 87.4 % Lymphocytes (%) (Auto) 6.3 % Monocytes (%) (Auto) 5.9 % Eosinophils (%) (Auto) 0.0 % Basophils (%) (Auto) 0.0 % Neutrophils # (Auto) 12.02 K/uL Lymphocytes # (Auto) 0.86 K/uL Monocytes # (Auto) 0.81 K/uL Eosinophils # (Auto) 0.00 K/uL Basophils # (Auto) 0.00 K/uL RDW Standard Deviation 48.9 fL RDW Coefficient of Variation 14.4 % Immature Granulocyte % (Auto) 0.4 % Immature Granulocyte # (Auto) 0.05 K/uL Bedside Glucose 131 mg/dl Assessment and Plan 52 yo male with severe allergic reaction/angioedema of the lips and tongue. - improved lip and tongue edema today - able to see the posterior pharyngeal wall as tongue edema has improved - ok for extubation trial from ENT standpoint
[2017-05-09] MEDS: FAMOTIDINE IV INJ 20 MG in DEXTROSE 5% 100ML 100 ML IV SCH ×2 (08:06→21:41)
--- NOTE | 2017-05-09 09:39 | Critical Care Progress Note ---
Critical Care Progress Note Date of Service May 09, 2017. ICU Day ICU Day Number: [address] Sexton Subjective Is awake and alert, Was on his phone texting. Is able to respond by shaking head , is able to lift head off bed, and is able to cough. Objective General Appearance: well-appearing, obese, intubated Head: normocephalic, atraumatic Eyes: PERRLA ENT: normal ear exam, other (ET tube at 26cm) Neck: normal range of motion, no tenderness, supple Cardiovasular: normal S1S2, no M/G/R Abdomen: non tender, no rebound, no masses, no guarding Back: normal inspection, no CVA tenderness Upper Extremities: no edema, normal ROM Lower Extremities: no edema, normal ROM Neuro: other (RASS -1. CAM negative) Current SOFA Score SOFA Score Response (Comments) Value Platelets (x10) > 150 0 Bilirubin (mg/dL) < 1.2 0 Carol Coma Score 15 0 Level of Hypotension No Hypotension 0 Creatinine (mg/dL) < 1.2 0 Total 0 Assessment & Plan 52 yo M with sudden onset lip swelling 2 day agos, necessitating airway protection with intubation - differential angioedema versus anaphylaxis. He had stopped his Lisinopril 3 weeks prior to this due to leg swelling, but also had azeri food immediately before. At this point will continue treating for both as are unable to differentiate at this time. NEURO: Sedation: Fentanyl stopped. Propofol at 10. CAM negative. RESP: Vent: A/C mode. Changed tidal volume to 550mL, PEEP 5, FiO2 30%, Rate 20 Will reassess if pt can be extubated - was cleared by ENT. Will likely have anesthesia present. Will continue IV Steroids for now, may reassess later in the day Head of bed at 30 degrees CVS: Weaning Propofol GI: Prophylaxis: Famotidine IV Holding off on tube feeds as pt will likely be extubated today, then will advance as tolerated ENDO: Glc 133 to 163 Will add sliding scale coverage once eating RENAL: NS at 100mL/hour HEME: DVT Prophylaxis: Heparin ID: No cultures / abx MISC: Will require allergy testing as OP C4 / C3 esterase testing pending CODE STATUS: Full DISPO: Remain in ICU Resident Physician Supervision Note/Conveyor Feeder The patient's care was discussed in detail on multidisciplinary rounds. I reviewed the VS, I/O, ntoes, meds, labs, micro, imaging and other reports. I have interviewed and examined the patient, reviewed the above documentation and have discussed the patient with Dr. Nieves. I agree with her assessment and plan. Any clarifications or additions will be noted below. His lips are less swollen and he was evaluated by ENT earlier today after being intubated for airway obstruction due to anaphylaxis vs. angioedema - he was felt to be ready for extubation today. He had excellent TV on Cpap 5/5 40%. I did a leak test on AC which was satisfactory. I was at the bedside when he was extubated and he had no stridor. Acute respiratory failure resolved. He remains on IV steroids, antihistamines, H2 blockers. C4, C1-INH pending. Likely will need allergy testing as outpatient and to go home with epi pen, steroids and antihistamine. Will assess ability to take po in a few hours and get him out of bed. D/C aguirre and adjust IVF. Will watch in ICU today. Critical care time50 minutes. Documented By: Natalie Sexton Consults & Procedures Consultants: ENT - Dr Guillen Anesthesia - Dr Pa Procedures: Intubated 05/07/17 Data Medications: Current Inpatient Medications Medications (Trade) Dose Ordered Sig/Christopher Route Start Time Stop Time Status Last Admin Dose Admin Morphine Sulfate (MoRPHine SULFATE INJ) 2 mg Q4 PRN IV 05/07/17 22:00 05/21/17 21:59 Sodium Chloride 1,000 ml @ 100 mls/hr Q10H IV 05/07/17 22:15 06/06/17 22:14 05/09/17 03:29 100 MLS/HR Famotidine 20 mg/ Dextrose 102 ml @ 200 mls/hr Q12@0800,1999 IV 05/08/17 08:00 06/07/17 07:59 05/09/17 08:06 200 MLS/HR Propofol (Diprivan Iv Emulsion 100ml Vial) 1 dose UD PRN IV 05/07/17 22:30 05/10/17 22:29 05/09/17 00:51 1 DOSE Albuterol/ Ipratropium (Duoneb) 3 ml Q4R INH 05/08/17 00:00 06/07/17 00:00 Future Hold 05/08/17 08:12 3 ML Diphenhydramine HCl (Benadryl Inj) 50 mg Q8@0400,1200,2000 IV 05/08/17 04:00 06/07/17 03:59 05/09/17 04:24 50 MG Methylprednisolone Sodium Succinate 40 mg/Syringe 0.64 ml @ 1.5 mls/min Q8@0000,0800,1600 IV 05/08/17 00:00 06/07/17 00:00 05/09/17 08:06 1.5 MLS/MIN Heparin Sodium (Porcine) (Heparin Sq 5000 Unit/0.5ml) 5,000 unit Q8 SQ 05/08/17 06:00 06/07/17 05:59 05/09/17 06:01 5,000 UNIT Ondansetron HCl (Zofran Inj) 4 mg Q6H PRN IV 05/08/17 02:30 06/07/17 02:29 05/08/17 12:12 4 MG Ipratropium Gravette (Atrovent Hfa Inhaler) 4 puffs Q4R INH 05/08/17 12:00 06/07/17 11:59 05/09/17 07:05 4 PUFFS Albuterol (Ventolin Hfa Inhaler) 4 puffs Q4R INH 05/08/17 12:00 06/07/17 11:59 05/09/17 07:05 4 PUFFS Fentanyl Citrate 250 ml @ 0 mls/hr Q0M PRN IV 05/08/17 12:30 05/22/17 12:29 05/08/17 15:10 50 MLS/HR Vital Signs: Date Time Temp Pulse Resp B/P (MAP) Pulse Ox O2 Delivery O2 Flow Rate FiO2 05/09/17 09:00 68 22 150/79 (102) 97 Mechanical Ventilator 40 05/09/17 08:00 40 05/09/17 08:00 37.1 52 26 129/68 (88) 96 Mechanical Ventilator 40 05/09/17 08:00 96 Mechanical Ventilator 40 05/09/17 07:10 40 05/09/17 06:00 51 20 122/63 (82) 96 Mechanical Ventilator 40 05/09/17 05:42 40 05/09/17 04:00 Mechanical Ventilator 40 05/09/17 04:00 40 05/09/17 04:00 37.1 49 20 122/68 (86) 96 Mechanical Ventilator 40 05/09/17 02:49 40 05/09/17 02:00 53 20 119/63 (81) 95 Mechanical Ventilator 40 05/09/17 00:00 36.7 56 20 108/58 (75) 94 Mechanical Ventilator 40 05/09/17 00:00 40 05/09/17 00:00 Mechanical Ventilator 40 05/08/17 23:15 40 05/08/17 22:01 37.2 58 20 125/65 94 05/08/17 21:46 59 20 123/67 94 05/08/17 21:31 59 20 122/67 94 05/08/17 21:16 58 20 124/68 95 05/08/17 21:01 58 20 118/66 96 05/08/17 20:51 40 05/08/17 20:46 58 20 128/69 96 05/08/17 20:31 60 20 123/69 96 05/08/17 20:16 59 20 124/66 94 05/08/17 20:01 37.0 61 20 122/68 96 05/08/17 20:00 Mechanical Ventilator 40 05/08/17 20:00 40 05/08/17 19:53 66 20 128/75 97 05/08/17 19:31 59 20 130/68 94 05/08/17 19:16 58 20 129/63 94 05/08/17 19:01 60 20 124/63 93 05/08/17 18:46 60 20 131/66 95 05/08/17 18:31 62 20 125/62 94 05/08/17 18:16 61 20 131/63 94 05/08/17 18:01 37.0 62 20 137/68 94 05/08/17 17:54 40 05/08/17 17:46 60 20 133/63 94 05/08/17 17:31 63 20 140/65 94 05/08/17 17:16 62 20 132/66 93 05/08/17 17:01 61 20 133/62 94 05/08/17 16:46 60 20 131/64 93 05/08/17 16:31 36.6 61 20 132/65 94 05/08/17 16:16 65 20 143/67 93 05/08/17 16:01 65 20 146/66 94 05/08/17 16:00 Mechanical Ventilator 40 05/08/17 16:00 40 05/08/17 15:46 67 20 138/66 93 05/08/17 15:31 69 20 140/62 93 05/08/17 15:04 40 05/08/17 15:00 36.8 65 20 93 05/08/17 13:16 66 111/52 (71) 93 05/08/17 13:01 72 101/49 (66) 93 05/08/17 12:16 97 165/98 (120) 98 05/08/17 12:10 36.6 91 137/114 (122) 96 05/08/17 12:00 40 05/08/17 12:00 94 Mechanical Ventilator 40 05/08/17 11:55 40 05/08/17 10:01 61 114/60 (78) 95 Laboratory Results: Last 24 Hours Test 05/08/17 11:52 05/08/17 12:37 05/08/17 18:44 05/08/17 19:35 Thyroid Stimulating Hormone (TSH) 1.720 uIu/ml Bedside Glucose 129 mg/dl 122 mg/dl Blood Gas Sample Site R Radial Bedside Blood Gas pH (LAB) 7.35 Bedside Blood Gas pCO2 (LAB) 47 mmHg Bedside Blood Gas pO2 (LAB) 72 mmHg Bedside Blood Gas HCO3 (LAB) 26 meq/L Bedside Blood Gas Total CO2 27 mEq/l Bedside Blood Gas Base Excess (LAB) 0.0 meq/L Bedside Blood Gas O2 Saturation 93.0 % Kavon Test Pass Oxygen Delivery Device Ventilator Bedside Oxygen Rate (breaths/min) 20 Blood Gas Minute Ventilation 10.1 Bedside FiO2 40 % Blood Gas Tidal Volume 550 Blood Gas PEEP 5 Test 05/09/17 05:22 05/09/17 05:29 White Blood Count 13.74 K/uL Red Blood Count 4.39 M/uL Hemoglobin 12.9 g/dL Hematocrit 40.5 % Mean Corpuscular Volume 92.3 fL Mean Corpuscular Hemoglobin 29.4 pg Mean Corpuscular Hemoglobin Concent 31.9 g/dl Platelet Count 177 K/uL Mean Platelet Volume 11.3 fL Neutrophils (%) (Auto) 87.4 % Lymphocytes (%) (Auto) 6.3 % Monocytes (%) (Auto) 5.9 % Eosinophils (%) (Auto) 0.0 % Basophils (%) (Auto) 0.0 % Neutrophils # (Auto) 12.02 K/uL Lymphocytes # (Auto) 0.86 K/uL Monocytes # (Auto) 0.81 K/uL Eosinophils # (Auto) 0.00 K/uL Basophils # (Auto) 0.00 K/uL RDW Standard Deviation 48.9 fL RDW Coefficient of Variation 14.4 % Immature Granulocyte % (Auto) 0.4 % Immature Granulocyte # (Auto) 0.05 K/uL Bedside Glucose 131 mg/dl Resident Tracking Resident Involvement: Resident Care Provided Care Provided: Adult [facility]
[2017-05-09] MEDS ORDERED: RAPID SEQUENCE INDUCTION BAG ONE (10:06)
[2017-05-09 13:00] LABS: BUN/CREATININE RATIO 19.6 (10-20); CALCIUM 8.4 mg/dl (8.5-10.1); CREATININE 1.2 mg/dl (0.60-1.40); POTASSIUM 4.6 mmol/L (3.5-5.1)
--- NOTE | 2017-05-09 22:01 | Progress Note ---
Medicine Progress Note Date & Time of Visit: May 09, 2017 at 14:28. Subjective 52 yo M with no h/o angioedema or allergies presents with angioedema of the lips and tongue requiring fiberoptic intubation by ENT. Extubated on 05/09 and breathing fine on 2L NC. Pt states that he feels well and is not sure what could have caused the allergic reaction. He did mention some previous greg oral numbness with shrimp in the shell previously and states that he did eat some clams at the [employer] restaurant. He also states that he is not happy on his lisinopril which makes his ankles swell and he would like to change back to his HCTZ; he reports being switched to Lasix two years ago and having issues ever since. -denies pain, shortness of breath -no complaints at this time -on ice chips right now, plan to advance diet later today Objective Last 8 Hrs Date Time Temp Pulse Resp B/P (MAP) Pulse Ox O2 Delivery O2 Flow Rate FiO2 05/09/17 12:00 98 8.0 28 05/09/17 12:00 59 20 158/85 (109) 90 Mask 8.0 28 05/09/17 11:32 63 18 28 Mask 6.0 96 05/09/17 09:15 35 05/09/17 09:00 68 22 150/79 (102) 97 Mechanical Ventilator 40 05/09/17 08:00 40 05/09/17 08:00 Mechanical Ventilator 40 05/09/17 08:00 37.1 52 26 129/68 (88) 96 Mechanical Ventilator 40 05/09/17 08:00 96 Mechanical Ventilator 40 05/09/17 07:10 40 Physical Exam: GEN: obese,alert and appropriate, NAD HEENT: NC/AT, PERRL, normal sclerae, pharynx nonacute-no further swelling of lips and tongue CARDIO: reg rate, S1/2 heard without m/g/r LUNGS: CTA bilaterally, no crackles, rales or wheezes, good diaphragmatic excursion ABD: soft, non-tender, non-distended, +BS EXTREMITY: RP and DP palpable 2+ bilat, no LE swelling or edema, extremities are warm and well-perfused NEURO: no gross focal deficits MUSC: moves all extremities equally SKIN: warm and dry Laboratory Results: 05/09/17 05:22 Red Blood Count 4.39, Mean Corpuscular Volume 92.3, Mean Corpuscular Hemoglobin 29.4, Mean Corpuscular Hemoglobin Concent 31.9, Mean Platelet Volume 11.3, Neutrophils (%) (Auto) 87.4, Lymphocytes (%) (Auto) 6.3, Monocytes (%) (Auto) 5.9, Eosinophils (%) (Auto) 0.0, Basophils (%) (Auto) 0.0, Neutrophils # (Auto) 12.02, Lymphocytes # (Auto) 0.86, Monocytes # (Auto) 0.81, Eosinophils # (Auto) 0.00, Basophils # (Auto) 0.00 05/09/17 12:22 Test 05/07/17 20:53 05/08/17 00:45 05/08/17 05:29 05/08/17 05:35 Prothrombin Time 10.3 SECONDS (9.0-12.0) Prothromb Time International Ratio 1.0 (0.9-1.1) Total Bilirubin 0.3 mg/dl (0.2-1) Direct Bilirubin 0.1 mg/dl (0-0.2) Aspartate Amino Transf (AST/SGOT) 47 U/L (15-37) Alanine Aminotransferase (ALT/SGPT) 66 U/L (12-78) Alkaline Phosphatase 63 U/L (45-117) Total Protein 8.0 gm/dl (6.4-8.2) Albumin 4.0 gm/dl (3.4-5.0) Lipase 161 U/L (73-393) Urine Color DK YELLOW Urine Appearance CLEAR (CLEAR) Urine pH 5.0 (4.5-7.5) Urine Specific [place] 1.026 (1.000-1.030) Urine Protein 1+ (NEG) Urine Glucose (UA) NEG (NEG) Urine Ketones TRACE (NEG) Urine Occult Blood TRACE (NEG) Urine Nitrite NEG (NEG) Urine Bilirubin NEG (NEG) Urine Urobilinogen NEG (NEG) Urine Leukocyte Esterase NEG (NEG) Urine WBC (Auto) 1-5 /hpf (0-5) Urine RBC (Auto) 5-10 /hpf (0-4) Urine Hyaline Casts (Auto) 10-30 /lpf (0-5) Urine Epithelial Cells (Auto) >30 /lpf (0-5) Urine Bacteria (Auto) NEG (NEG) Urine Pathogenic Casts /lpf (0) Bedside Venous pH 7.37 (7.36-7.41) Bedside Venous pCO2 45 mmHg (38.0-50.0) Bedside Venous pO2 40 mmHg (30-55) Bedside Venous HCO3 26 meq/L (23-28) Bedside Venous Blood Total CO2 28 mEq/l (24-31) Bedside Venous Blood O2 Saturation 74.0 % (70-80) Bedside Venous Blood Base Excess 1.0 meq/L Phosphorus Level 2.5 mg/dl (2.5-4.9) Magnesium Level 2.2 mg/dl (1.8-2.4) Test 05/08/17 11:52 05/08/17 18:44 05/09/17 05:22 05/09/17 12:22 Thyroid Stimulating Hormone (TSH) 1.720 uIu/ml (0.300-4.500) Blood Gas Sample Site R Radial Bedside Blood Gas pH (LAB) 7.35 (7.35-7.45) Bedside Blood Gas pCO2 (LAB) 47 mmHg (35-46) Bedside Blood Gas pO2 (LAB) 72 mmHg (80-95) Bedside Blood Gas HCO3 (LAB) 26 meq/L (19-24) Bedside Blood Gas Total CO2 27 mEq/l (24-31) Bedside Blood Gas Base Excess (LAB) 0.0 meq/L (-9-1.8) Bedside Blood Gas O2 Saturation 93.0 % (90-95) Kavon Test Pass Oxygen Delivery Device Ventilator Bedside Oxygen Rate (breaths/min) 20 Blood Gas Minute Ventilation 10.1 Bedside FiO2 40 % Blood Gas Tidal Volume 550 Blood Gas PEEP 5 White Blood Count 13.74 K/uL (4.8-10.8) Red Blood Count 4.39 M/uL (4.7-6.1) Hemoglobin 12.9 g/dL (14.0-18.0) Hematocrit 40.5 % (42-52) Mean Corpuscular Volume 92.3 fL (80-100) Mean Corpuscular Hemoglobin 29.4 pg (25-34) Mean Corpuscular Hemoglobin Concent 31.9 g/dl (32-36) Platelet Count 177 K/uL (130-400) Mean Platelet Volume 11.3 fL (7.4-10.4) Neutrophils (%) (Auto) 87.4 % Lymphocytes (%) (Auto) 6.3 % Monocytes (%) (Auto) 5.9 % Eosinophils (%) (Auto) 0.0 % Basophils (%) (Auto) 0.0 % Neutrophils # (Auto) 12.02 K/uL (1.4-6.5) Lymphocytes # (Auto) 0.86 K/uL (1.2-3.4) Monocytes # (Auto) 0.81 K/uL (0.11-0.59) Eosinophils # (Auto) 0.00 K/uL (0-0.5) Basophils # (Auto) 0.00 K/uL (0-0.2) RDW Standard Deviation 48.9 fL (36.4-46.3) RDW Coefficient of Variation 14.4 % (11.5-14.5) Immature Granulocyte % (Auto) 0.4 % Immature Granulocyte # (Auto) 0.05 K/uL (0.00-0.02) Anion Gap 7.0 mmol/L (3-11) Est Creatinine Clear Calc Drug Dose 112.2 ml/min Estimated GFR () 79.0 Estimated GFR (Non- 68.1 BUN/Creatinine Ratio 19.6 (10-20) Calcium Level 8.4 mg/dl (8.5-10.1) Test 05/09/17 21:28 Bedside Glucose 121 mg/dl (70-99) Date/Time Source Procedure Growth Status 05/07/17 00:00 Nasal MRSA DNA Surveillance Screen - Final Specimen Positive for MRSA by DNA Probe Complete Last 24 Hours Test 05/08/17 18:44 05/08/17 19:35 05/09/17 05:22 05/09/17 05:29 Blood Gas Sample Site R Radial Bedside Blood Gas pH (LAB) 7.35 Bedside Blood Gas pCO2 (LAB) 47 mmHg Bedside Blood Gas pO2 (LAB) 72 mmHg Bedside Blood Gas HCO3 (LAB) 26 meq/L Bedside Blood Gas Total CO2 27 mEq/l Bedside Blood Gas Base Excess (LAB) 0.0 meq/L Bedside Blood Gas O2 Saturation 93.0 % Kavon Test Pass Oxygen Delivery Device Ventilator Bedside Oxygen Rate (breaths/min) 20 Blood Gas Minute Ventilation 10.1 Bedside FiO2 40 % Blood Gas Tidal Volume 550 Blood Gas PEEP 5 Bedside Glucose 122 mg/dl 131 mg/dl White Blood Count 13.74 K/uL Red Blood Count 4.39 M/uL Hemoglobin 12.9 g/dL Hematocrit 40.5 % Mean Corpuscular Volume 92.3 fL Mean Corpuscular Hemoglobin 29.4 pg Mean Corpuscular Hemoglobin Concent 31.9 g/dl Platelet Count 177 K/uL Mean Platelet Volume 11.3 fL Neutrophils (%) (Auto) 87.4 % Lymphocytes (%) (Auto) 6.3 % Monocytes (%) (Auto) 5.9 % Eosinophils (%) (Auto) 0.0 % Basophils (%) (Auto) 0.0 % Neutrophils # (Auto) 12.02 K/uL Lymphocytes # (Auto) 0.86 K/uL Monocytes # (Auto) 0.81 K/uL Eosinophils # (Auto) 0.00 K/uL Basophils # (Auto) 0.00 K/uL RDW Standard Deviation 48.9 fL RDW Coefficient of Variation 14.4 % Immature Granulocyte % (Auto) 0.4 % Immature Granulocyte # (Auto) 0.05 K/uL Test 05/09/17 12:22 Sodium Level 141 mmol/L Potassium Level 4.6 mmol/L Chloride Level 109 mmol/L Carbon Dioxide Level 25 mmol/L Anion Gap 7.0 mmol/L Blood Urea Nitrogen 24 mg/dl Creatinine 1.20 mg/dl Est Creatinine Clear Calc Drug Dose 112.2 ml/min Estimated GFR () 79.0 Estimated GFR (Non- 68.1 BUN/Creatinine Ratio 19.6 Random Glucose 122 mg/dl Calcium Level 8.4 mg/dl Assessment & Plan 52 yo M with no h/o angioedema or allergies presents with angioedema of the lips and tongue requiring fiberoptic intubation by ENT. Extubated on 05/09 and breathing fine on 2L NC. Pt states that he feels well and is not sure what could have caused the allergic reaction. He did mention some previous greg oral numbness with shrimp in the shell previously and states that he did eat some clams at the [employer] restaurant. He also states that he is not happy on his lisinopril which makes his ankles swell and he would like to change back to his HCTZ; he reports being switched to Lasix two years ago and having issues ever since. ANGIOEDEMA OF THE LIPS AND TONGUE-resolved. Pt is breathing on his own after extubation this morning and doing well HTN-Amlodipine, Furosemide and lisinopril (he was not taking this) all held on admission. Recommend ICU team restarting something for BP control. Per patient he would like to adjust his outpatient regimen on discharge, so will discuss options with him prior to that. CHEMA: resolved after IVF Dyslipidemia: will restart Lipitor when he passes swallow study post-extubation Leukocytosis 2/2 above. DVT PX on heparin subq FULL CODE Dispo-cont ICU monitoring DO Zachary Dumont Hospitalist Consultants: ICU Current Inpatient Medications: Current Inpatient Medications Medications (Trade) Dose Ordered Sig/Christopher Route Start Time Stop Time Status Last Admin Dose Admin Morphine Sulfate (MoRPHine SULFATE INJ) 2 mg Q4 PRN IV 05/07/17 22:00 05/21/17 21:59 Sodium Chloride 1,000 ml @ 50 mls/hr Q20H IV 05/07/17 22:15 06/06/17 22:14 05/09/17 03:29 100 MLS/HR Famotidine 20 mg/ Dextrose 102 ml @ 200 mls/hr Q12@0800,2000 IV 05/08/17 08:00 06/07/17 07:59 05/09/17 08:06 200 MLS/HR Albuterol/ Ipratropium (Duoneb) 3 ml Q4R INH 05/08/17 00:00 06/07/17 00:00 Future Hold 05/08/17 08:12 3 ML Diphenhydramine HCl (Benadryl Inj) 50 mg Q8@0400,1200,2000 IV 05/08/17 04:00 06/07/17 03:59 05/09/17 12:04 50 MG Methylprednisolone Sodium Succinate 40 mg/Syringe 0.64 ml @ 1.5 mls/min Q8@0000,0800,1600 IV 05/08/17 00:00 06/07/17 00:00 05/09/17 08:06 1.5 MLS/MIN Heparin Sodium (Porcine) (Heparin Sq 5000 Unit/0.5ml) 5,000 unit Q8 SQ 05/08/17 06:00 06/07/17 05:59 05/09/17 14:05 5,000 UNIT Ondansetron HCl (Zofran Inj) 4 mg Q6H PRN IV 05/08/17 02:30 06/07/17 02:29 05/08/17 12:12 4 MG Ipratropium Jackson (Atrovent Hfa Inhaler) 2 puffs Q4 INH 05/09/17 16:00 06/08/17 15:59 Albuterol (Ventolin Hfa Inhaler) 2 puffs Q4 INH 05/09/17 16:00 06/08/17 15:59
[2017-05-10] VITALS (8 sets, daily range): BP systolic 141–158; BP diastolic 83–101; PULSE 50–69; TEMP 36.8–37; O2SAT 94–99
[2017-05-10] MEDS: DiphenhydrAMINE HCL 50 MG/ML VIAL IV SCH (03:59)
[2017-05-10] MEDS: IPRATROPIUM BROMIDE HFA INHALER INH SCH ×3 (03:59→12:00)
[2017-05-10] MEDS ORDERED: METHYLPREDNISOLONE IV 40 MG in SYRINGE 0 ML IV SCH (04:00)
[2017-05-10] MEDS: ALBUTEROL HFA 8 GM INHALER INH SCH ×3 (04:00→12:00)
[2017-05-10] MEDS: HEPARIN SOD 5000 UNIT/0.5 ML CARP SQ SCH (06:20)
[2017-05-10 06:41] LABS: COMPLETE YES; HEMATOCRIT 43.4 % (42-52); IG% 0.4 %; LYMPH ABS # 1.08 K/uL (1.2-3.4); MEAN CELL VOLUME 93.1 fL (80-100); MEAN CORPUSCULAR HEMOGLOBIN 29.4 pg (25-34); MEAN CORPUSCULAR HGB CONC 31.6 g/dl (32-36); MEAN PLATELET VOLUME 11.6 fL (7.4-10.4); NEUT % 85.6 %; PLATELET COUNT 184 K/uL (130-400); RED BLOOD COUNT 4.66 M/uL (4.7-6.1); WHITE BLOOD COUNT 13.44 K/uL (4.8-10.8)
[2017-05-10 07:03] LABS: BUN/CREATININE RATIO 23.6 (10-20); CALCIUM 8.6 mg/dl (8.5-10.1); CREATININE 0.97 mg/dl (0.60-1.40); POTASSIUM 4.5 mmol/L (3.5-5.1)
--- NOTE | 2017-05-10 07:48 | Critical Care Progress Note ---
Critical Care Progress Note Date of Service May 10, 2017. ICU Day ICU Day Number: [address] Darshan Cruz looks significantly better today - lip edema has essentially resolved. Tongue is still large but unsure what baseline is. He denies any pain or shortness of breath. He is eager to go home. Objective General Appearance: well-appearing, obese, sitting in chair. Head: normocephalic, atraumatic Eyes: PERRLA ENT: normal ear exam Neck: normal range of motion, no tenderness, supple Cardiovasular: normal S1S2, no M/G/R Abdomen: non tender, no rebound, no masses, no guarding Back: normal inspection, no CVA tenderness Upper Extremities: no edema, normal ROM Lower Extremities: no edema, normal ROM Neuro: A&O x 3 Current SOFA Score SOFA Score Response (Comments) Value Platelets (x10) > 150 0 Bilirubin (mg/dL) < 1.2 0 [place] Coma Score 15 0 Level of Hypotension No Hypotension 0 Creatinine (mg/dL) < 1.2 0 Total 0 Assessment & Plan 52 yo M with HTN with sudden onset lip swelling 3 days ago, requiring intubation , now resolved. He had not taken Lisinopril for 2 weeks prior to this, and had just had English food immediately before. Differential still remains angioedema versus anaphylaxis, now resolved. ALLERGY: Will switch to Prednisone 50mg PO x 4 days, then 40mg x 4 days, then 30mg x 4 days, then 20mg x 4 days, then 10mg x 4 days, then stop. Will require allergy testing as outpatient RESP: Needed O2 overnight, no further requirement CVS: For HTN, HCTZ-Losartan started today, continue to monitor and increase as tolerated GI: Will switch Benadryl / Famotidine to Zantac PO BID Advance diet as tolerated ENDO: Glc 123 to 133 RENAL: Stopped IV fluids HEME: DVT Prophylaxis: Heparin ID: No cultures / abx MISC: Will require allergy testing as OP C4 / C3 esterase testing pending CODE STATUS: Full DISPO: Mr Hendrix is stable for transfer out of the ICU, and we agree with discharge home later today if remains stable. Please do not hesitate to contact us with any questions or concerns. Resident Physician Supervision Note/Water Maintenance Supervisor The patient's care was discussed in detail on multidisciplinary rounds today. I have interviewed and examined him. I have also reviewed the vital signs, I's and O's, notes, medications, labs, and other reports. I have reviewed the above documentation and discussed the patient's care with . I agree with her assessment and plan. Any clarifications can be found below. He was successfully extubated yesterday and has been taking a clear diet without difficulty. He was hypertensive last night and has been started on losartan/hydrochlorothiazide. He is tearful about his weight and the events over the past few days. He reports when he ate shrimp in the distant past, he had a few hives and his lips started to swell. He has had shrimp at least a handful of times, maybe more, since then without any reaction. He ate shrimp and possibly oysters at the [employer] the evening he presented to the emergency department. On exam, facial swelling, particularly the edema of his lips is improved compared to yesterday. No stridor, lungs are clear. Impression: 1. Anaphylaxis versus angioedema. He may be allergic to shellfish. 2. Respiratory failure, medication induced due to the need for airway protection, resolved 3. Hypertension, he is now on losartan/hydrochlorothiazide. 4. Morbid obesity 5. Possible obstructive sleep apnea/nighttime hypoxemia. The plan is well outlined above. He is being changed to oral steroids with a taper, oral H2 alivia, and his diet is being advanced. He is interested in finding a different primary care physician. Dr. Casillas is assisting him with this. Allergy testing in the future may be helpful. C4 and C3-INH quantitative and functional are pending. I told him to avoid all shellfish. He is stable for transfer to the floor or possibly home today. Questions were answered and support was provided. Documented By: Natalei Sexton Consults & Procedures Consultants: ENT - Dr Guillen Anesthesia - Dr Pa Procedures: Intubated 05/07/17, Extubated 05/09/17 Data Medications: Current Inpatient Medications Medications (Trade) Dose Ordered Sig/Christopher Route Start Time Stop Time Status Last Admin Dose Admin Morphine Sulfate (MoRPHine SULFATE INJ) 2 mg Q4 PRN IV 05/07/17 22:00 05/21/17 21:59 Famotidine 20 mg/ Dextrose 102 ml @ 200 mls/hr Q12@0800,1999 IV 05/08/17 08:00 06/07/17 07:59 05/09/17 21:41 200 MLS/HR Diphenhydramine HCl (Benadryl Inj) 50 mg Q8@0400,1200,2000 IV 05/08/17 04:00 06/07/17 03:59 05/10/17 03:59 50 MG Heparin Sodium (Porcine) (Heparin Sq 5000 Unit/0.5ml) 5,000 unit Q8 SQ 05/08/17 06:00 06/07/17 05:59 05/10/17 06:20 5,000 UNIT Ondansetron HCl (Zofran Inj) 4 mg Q6H PRN IV 05/08/17 02:30 06/07/17 02:29 05/08/17 12:12 4 MG Ipratropium Nerinx (Atrovent Hfa Inhaler) 2 puffs Q4 INH 05/09/17 16:00 06/08/17 15:59 05/10/17 03:59 2 PUFFS Albuterol (Ventolin Hfa Inhaler) 2 puffs Q4 INH 05/09/17 16:00 06/08/17 15:59 05/10/17 04:00 2 PUFFS Methylprednisolone Sodium Succinate 40 mg/Syringe 0.64 ml @ 1.5 mls/min Q12@0400,1600 IV 05/10/17 04:00 06/09/17 03:59 05/10/17 03:59 1.5 MLS/MIN HCTZ/Losartan Potassium (Hyzaar 50-12.5 Tab) 1 tab QAM PO 05/10/17 09:00 06/09/17 08:59 Vital Signs: Date Time Temp Pulse Resp B/P (MAP) Pulse Ox O2 Delivery O2 Flow Rate FiO2 05/10/17 06:00 52 150/96 (114) 96 Nasal Cannula 3.0 05/10/17 04:00 37.0 50 18 152/83 (106) 98 Nasal Cannula 3.0 05/10/17 04:00 94 Nasal Cannula 3.0 05/10/17 02:00 50 148/85 (106) 96 05/10/17 00:00 94 Nasal Cannula 3.0 05/10/17 00:00 36.8 59 18 158/92 (114) 94 Nasal Cannula 3.0 05/09/17 22:01 73 162/83 (109) 94 Nasal Cannula 3.0 05/09/17 20:01 36.9 71 167/91 (116) 92 Nasal Cannula 3.0 05/09/17 20:00 96 Nasal Cannula 3.0 05/09/17 18:13 70 173/99 (123) 91 05/09/17 18:12 68 200/113 (142) 93 05/09/17 18:01 65 170/103 (125) 93 05/09/17 16:01 36.7 76 26 179/96 (123) 95 Nasal Cannula 2.0 05/09/17 16:00 95 Nasal Cannula 2.0 05/09/17 14:00 63 20 158/79 (105) 93 Nasal Cannula 6.0 05/09/17 12:00 98 8.0 28 05/09/17 12:00 59 20 158/85 (109) 90 Mask 8.0 28 05/09/17 11:32 63 18 28 Mask 6.0 96 05/09/17 09:15 35 05/09/17 09:00 68 22 150/79 (102) 97 Mechanical Ventilator 40 05/09/17 08:00 40 05/09/17 08:00 Mechanical Ventilator 40 05/09/17 08:00 37.1 52 26 129/68 (88) 96 Mechanical Ventilator 40 05/09/17 08:00 96 Mechanical Ventilator 40 Laboratory Results: Last 24 Hours Test 05/09/17 12:22 05/09/17 21:28 05/10/17 06:16 Sodium Level 141 mmol/L 142 mmol/L Potassium Level 4.6 mmol/L 4.5 mmol/L Chloride Level 109 mmol/L 108 mmol/L Carbon Dioxide Level 25 mmol/L 28 mmol/L Anion Gap 7.0 mmol/L 6.0 mmol/L Blood Urea Nitrogen 24 mg/dl 23 mg/dl Creatinine 1.20 mg/dl 0.97 mg/dl Est Creatinine Clear Calc Drug Dose 112.2 ml/min 138.0 ml/min Estimated GFR () 79.0 102.2 Estimated GFR (Non- 68.1 88.1 BUN/Creatinine Ratio 19.6 23.6 Random Glucose 122 mg/dl 131 mg/dl Calcium Level 8.4 mg/dl 8.6 mg/dl Bedside Glucose 121 mg/dl White Blood Count 13.44 K/uL Red Blood Count 4.66 M/uL Hemoglobin 13.7 g/dL Hematocrit 43.4 % Mean Corpuscular Volume 93.1 fL Mean Corpuscular Hemoglobin 29.4 pg Mean Corpuscular Hemoglobin Concent 31.6 g/dl Platelet Count 184 K/uL Mean Platelet Volume 11.6 fL Neutrophils (%) (Auto) 85.6 % Lymphocytes (%) (Auto) 8.0 % Monocytes (%) (Auto) 6.0 % Eosinophils (%) (Auto) 0.0 % Basophils (%) (Auto) 0.0 % Neutrophils # (Auto) 11.50 K/uL Lymphocytes # (Auto) 1.08 K/uL Monocytes # (Auto) 0.80 K/uL Eosinophils # (Auto) 0.00 K/uL Basophils # (Auto) 0.00 K/uL RDW Standard Deviation 48.5 fL RDW Coefficient of Variation 14.2 % Immature Granulocyte % (Auto) 0.4 % Immature Granulocyte # (Auto) 0.06 K/uL Resident Tracking Resident Involvement: Resident Care Provided Care Provided: Adult [facility] Medicine
[2017-05-10] MEDS: FAMOTIDINE IV INJ 20 MG in DEXTROSE 5% 100ML 100 ML IV SCH (07:58)
[2017-05-10] MEDS ORDERED: LOSARTAN/HCTZ 50-12.5 EA TAB PO SCH (09:00)
[2017-05-10] MEDS ORDERED: BuPROPion SR 150 MG TABCR PO SCH (10:00)
[2017-05-10] MEDS ORDERED: LOSA50TA55 PO (13:05)
[2017-05-10] MEDS ORDERED: PRD10 PO (13:05)
[2017-05-10] MEDS ORDERED: EPP3/2 IM (13:05)
--- NOTE | 2017-05-10 13:13 | Discharge Instructions ---
Discharge Instructions Date of Service May 10, 2017. Admission Reason for Admission: Lip Swelling, Tongue Swelling Discharge Discharge Diagnosis / Problem: Anaphylaxis requiring intubation Discharge Goals Goal(s): Specific goals (prevent reoccurrence) Activity Recommendations Activity Limitations: per Instructions/Follow-up section . Instructions / Follow-Up Instructions / Follow-Up Please take all medications as instructed. Note your blood pressure medication has been changed to one pill that is a combined pill with two drugs in it, including HCTZ. You will need non-fasting bloodwork in two weeks to ensure your kidneys and electrolytes are stable. You will also need to take your blood pressure at least three times weekly, record the values, and bring to every medical appointment for physician review. You have been provided a prescription for this at discharge. You have also been given an autoinjector for EPINEPHRINE. This is a medication used for severe allergic reactions, and should be administered immediately by yourself or someone else if you have a return of symptoms. If this is used or considered, please also seek immediate medical attention. It is highly recommended that you see an REFRIGERATION OPERATOR as an outpatient to help with identification of the triggers causing your hospitalization. For now, please avoid clams, peeled shrimp and other shellfish per our conversation. A referral can be placed by Dr. Schreiber at follow-up appointment. You have been scheduled to see Dr. Schreiber on 05/14 @ 2:55pm for follow-up of this hospitalization. Please bring all paperwork from discharge to this appointment with you. I recommend avoiding use of NSAIDs such as Aleve, especially while on steroids in the next few months. You can use TYLENOL (Acetaminophen) as an alternative. For arthritis, it is fine to take 1000mg every 8 hours round the clock consistently to help keep you out of pain. Follow-up with your primary care physician to monitor your progress and step up therapy if needed. It was a pleasure taking care of you! Call if you have any questions or problems. You can reach a [facility] hospitalist on duty at [facility] 24 hours a day by calling [phone]. Take care of yourself. Fannie Casillas, [facility] Hospitalist Current Hospital Diet Patient's current hospital diet: AHA Diet (Heart Healthy) Discharge Diet Recommended Diet: AHA Diet (Heart Healthy) Procedures Procedures Performed: Difficult Intubation-fiberoptic intubation in OR required s/p 2 units of FFP given Pending Studies Studies pending at discharge: no Medical Emergencies . Who to Call and When: Medical Emergencies: If at any time you feel your situation is an emergency, please call 911 immediately. . Non-Emergent Contact Non-Emergency issues call your: Primary Care Provider . . "Provider Documentation" section prepared by Fannie Casillas. . VTE Core Measure Inpt VTE Proph given/why not?: Unfractionated heparin SQ
--- NOTE | 2017-05-10 13:16 | Discharge Summary ---
Discharge Summary Date of Service May 10, 2017. Discharge Summary Admission Date: May 07, 2017 at 22:05 Discharge Date: May 10, 2017 Discharge Disposition: Home Principal Diagnosis: Angioedema of the lips and tongue 2/2 allergic reaction HTN CHEMA-resolved Dyslipidemia Leukocytosis Obesity Procedures: Fiberoptic intubation-05/07 2 Units FFP transfused 05/07 Vaccinations: None. Consultations: ICU Pending Studies/Follow-Up: see instructions below. Medication Reconciliation New Medications: Epinephrine (Epipen 2-Jamil) 0.3 Mg Inj 1 EA IM UD for 30 Days, #1 BOX Follow instructions for auto-injection on box in setting of severe allergic reaction, then call 911. Losartan Potassium & Hydrochlo (Losartan Potassium/Hydroc) 1 Tab Tab 1 TAB PO QAM for 30 Days, #30 TAB 1 Refill Prednisone (Prednisone) 10 Mg Tab 50 MG PO UD for 30 Days, #55 TAB 0 Refills Take 50mg x 3 dys, then 40mg x 4 dys, then 30mg x 4 dys, then 20mg x 4 dys, then 10mg x 4 dys, then stop Continued Medications: Allopurinol (Zyloprim) 300 Mg Tab 300 MG PO DAILY, TAB Aspirin (Aspirin Ec) 81 Mg Tab 81 MG PO DAILY Atorvastatin (Lipitor) 10 Mg Tab 10 MG PO DAILY, TAB Bupropion (Wellbutrin Sr) 150 Mg Ertab 150 MG PO BID, TAB Discontinued Medications: Amlodipine (Norvasc) 5 Mg Tab 5 MG PO DAILY, TAB Furosemide (Lasix) 20 Mg Tab 20 MG PO DAILY PRN for EDEMA, TAB Lisinopril (Zestril) 40 Mg Tab 40 MG PO DAILY, TAB Admission Information HPI (per Admitting provider): 52 year old male with PMH of HTN, Morbid Obesity, HTN, Gout, Dyslipidemia presents to the Emergency Room with c/o of swelling of the lips and tongue. History obtained from his . As per , Pt ate seafood at a [employer] [place] around 5:30 to 6 pm today. Then later after an hour or two, he developed swelling of the lips and tongue. said that pt was starting to have difficulty to talk and breath. gave him 50 mg of Benadryl to take. Before the allergic reaction, said that pt was outside working. as pt , denies any insect bites and pt never had any allergic reactions in the past with food or medications. Pt was in the ER 1 week ago for kidney stone. He was discharge with a script for oxycodone, zofran and Flomax. Pt is on Lisinopril for his HTN and was not sure if he took it. Per , Pt did not complaint of any chest pain, palpitation, dizziness, fever, chills and urinary symptoms. In the ER he was given epi pen, steroid, Benadryl. He was taken to the OR for emergent intubation performed by ENT and Anesthesiologist. Physical Exam (per Admitting): General Appearance: + obese, + pertinent finding (Respiratory distress, Intubate on vent support) Head: normocephalic, atraumatic Eyes: PERRL, sclerae normal ENT: + pertinent finding (Lips swelling, ET tube in good position) Neck: no JVD Respiratory/Chest: + pertinent finding (Vent support, No crackle or wheezing ) Cardiovascular: regular rate, rhythm, no JVD, no murmur Abdomen/GI: normal bowel sounds Extremities/Musculoskelatal: + swelling Neurologic/Psych: + pertinent finding (sedated on propofol) Skin: warm/dry Hospital Course 52 yo M with no h/o angioedema or allergies presents with angioedema of the lips and tongue requiring fiberoptic intubation by ENT. Extubated on 05/09 and breathing fine on 2L NC. Pt states that he feels well and is not sure what could have caused the allergic reaction. He did mention some previous greg oral numbness with shrimp in the shell previously and states that he did eat some clams at the [employer] restaurant. He also states that he is not happy on his lisinopril which makes his ankles swell and he would like to change back to his HCTZ; he reports being switched to Lasix two years ago and having issues ever since. Meds were adjusted at discharge with close followup w new PCP. On day of discharge he was advised to stay away from shellfish and seek a referral to see an slab depiler operator. He was given an epi pen with instructions on how and when to use , and was advised that if he needed to use it for any reason, he should seek immediate medical attention. He verbalized understanding with intent to comply. He was tolerating PO, breathing well on his own with no complaints, ambulating at baseline and physical exan was unremarkable aside from obesity. He was discharged in stable condition. Total time spent on discharge = 60 minutes This includes examination of the patient, discharge planning, medication reconciliation, and communication with other providers. Discharge Instructions Discharge Instructions Date of Service May 10, 2017. Admission Reason for Admission: Lip Swelling, Tongue Swelling Discharge Discharge Diagnosis / Problem: Anaphylaxis requiring intubation Discharge Goals Goal(s): Specific goals (prevent reoccurrence) Activity Recommendations Activity Limitations: per Instructions/Follow-up section . Instructions / Follow-Up Instructions / Follow-Up Please take all medications as instructed. Note your blood pressure medication has been changed to one pill that is a combined pill with two drugs in it, including HCTZ. You will need non-fasting bloodwork in two weeks to ensure your kidneys and electrolytes are stable. You will also need to take your blood pressure at least three times weekly, record the values, and bring to every medical appointment for physician review. You have been provided a prescription for this at discharge. You have also been given an autoinjector for EPINEPHRINE. This is a medication used for severe allergic reactions, and should be administered immediately by yourself or someone else if you have a return of symptoms. If this is used or considered, please also seek immediate medical attention. It is highly recommended that you see an SWITCHBOARD AND CONTROL ROOM OPERATOR as an outpatient to help with identification of the triggers causing your hospitalization. For now, please avoid clams, peeled shrimp and other shellfish per our conversation. A referral can be placed by Dr. Schreiber at follow-up appointment. You have been scheduled to see Dr. Schreiber on 05/14 @ 2:55pm for follow-up of this hospitalization. Please bring all paperwork from discharge to this appointment with you. It was a pleasure taking care of you! Call if you have any questions or problems. You can reach a [facility] hospitalist on duty at [facility] 24 hours a day by calling [phone]. Take care of yourself. Fannie Casillas, [facility] Center[facility] Additional Copies To Yariel Schreiber M.D.
[2017-05-10] MEDS ORDERED: RANITIDINE HCL 150 MG TAB PO SCH (21:00)
[2017-05-10 23:35] LABS: C1 ESTERASE INHIB FUNC >100 % (>=68); C1 ESTERASE INHIB TC298 30 mg/dL (21-39)
== END 2017-05-10 14:13 | disposition home or self-care (01) | DRG 915 ==
LOC: C.EDB 20:28 → C.MSICU 22:05
PROVIDERS: ADMIT Internal Medicine; ATTEND Hospitalist
PROC: 5A1945Z Respiratory Ventilation, 24-96 Consecutive Hours (ICD-10-PCS; principal; 2017-05-07 21:15)
PROC: 0BH17EZ Insertion of Endotracheal Airway into Trachea, Via Natural or Artificial Opening (ICD-10-PCS; principal; 2017-05-07 21:15)
DX: T78.3XXA Angioneurotic edema, initial encounter (principal); J96.00 Acute respiratory failure, unspecified whether with hypoxia or hypercapnia; N17.9 Acute kidney failure, unspecified; Z68.43 Body mass index [BMI] 50.0-59.9, adult; T78.1XXA Other adverse food reactions, not elsewhere classified, initial encounter; X58.XXXA Exposure to other specified factors, initial encounter; D72.829 Elevated white blood cell count, unspecified; I10 Essential (primary) hypertension; M10.9 Gout, unspecified; E78.5 Hyperlipidemia, unspecified; G47.33 Obstructive sleep apnea (adult) (pediatric); G47.36 Sleep related hypoventilation in conditions classified elsewhere; E66.01 Morbid (severe) obesity due to excess calories; Z78.1 Physical restraint status; Z79.82 Long term (current) use of aspirin; Z79.899 Other long term (current) drug therapy